=== PATIENT | female | born 1970 | race Caucasian/White ===

== ENCOUNTER 2018-11-23 17:51 | Inpatient (IN) ==
--- NOTE | 2018-11-23 19:39 | XRay Report ---
XR chest 1V portable CLINICAL HISTORY: 48 years-old Female presenting with weakness. TECHNIQUE: Portable upright AP view of the chest was obtained. COMPARISON: None. FINDINGS: Cardiomediastinal silhouette normal. No focal opacity. No large effusion or pneumothorax. Osseous str uctures normal. Upper abdomen normal. IMPRESSION: 1. No acute cardiopulmonary disease. Electronically signed by: Dliip Katz M.D. 11/23/2018 7:38 PM
[2018-11-23 19:55] LABS: Basophils # (auto) 0.02 K/uL (0-0.2); Basophils % (auto) 0.2 %; Eosinophils # (auto) 0.15 K/uL (0-0.5); Eosinophils % (auto) 1.2 %; Hematocrit (blood only) 37.3 % (37-47); Hemoglobin 13.4 g/dL (12.0-16.0); Immature Granulocytes # (auto) 0.06 K/uL (0.00-0.02); Immature Granulocytes % (auto) 0.5 %; Lymphocytes # (auto) 2.13 K/uL (1.2-3.4); Lymphocytes % (auto) 16.9 %; Mean Corpuscular Hemoglobin 32.6 pg (25-34); Mean Corpuscular Hgb Conc 35.9 g/dL (32-36); Mean Corpuscular Volume 90.8 fL (80-100); Mean Platelet Volume 9.5 fL (7.4-10.4); Monocytes # (auto) 0.75 K/uL (0.11-0.59); Neutrophils # (auto) 9.46 K/uL (1.4-6.5); Neutrophils % (auto) 75.2 %; Platelet Count 426 K/uL (130-400); RDW Standard Deviation 42.9 fL (36.4-46.3); Red Blood Count 4.11 M/uL (4.2-5.4); White Blood Count 12.57 K/uL (4.8-10.8)
[2018-11-23 20:38] LABS: Alanine Aminotransferase 101 U/L (12-78); Albumin Globulin Ratio 0.9 (0.9-2); Albumin Level 3.8 gm/dl (3.4-5.0); Alkaline Phosphatase 124 U/L (45-117); Aspartate Aminotransferase 163 U/L (15-37); BUN Creatinine Ratio 10.8 (10-20); Bilirubin,Total 0.4 mg/dl (0.2-1); Blood Urea Nitrogen 14 mg/dl (7-18); Calcium 9.8 mg/dl (8.5-10.1); Carbon Dioxide 27 mmol/L (21-32); Chloride 89 mmol/L (98-107); Creatine Kinase 8705 U/L (26-192); Creatinine Clr Calc Pharmacy 49.2 ml/min; Est GFR (African American) 58.9; Est GFR (Non-African American) 50.8; Glucose 354 mg/dl (70-99); Phosphorus 2.7 mg/dl (2.5-4.9); Potassium 3.9 mmol/L (3.5-5.1); Sodium 124 mmol/L (136-145); Total Protein 7.8 gm/dl (6.4-8.2); Troponin I < 0.015 ng/ml (0-0.045)
[2018-11-23] MEDS ORDERED: LACTATED RINGER'S 500 ML IV ONE (20:42)
[2018-11-23 20:45] LABS: Lyme Ab IgG w/WB Rflx Negative (Negative); Lyme Ab IgM w/WB Rflx Negative (Negative)
--- NOTE | 2018-11-23 21:10 | Emergency Department Note ---
Entered by Cece Cassidy acting as a scribe for History of Present Illness General Chief complaint: Pain (Generalized) Stated complaint: FULL BODY CRAMPS Source: patient History of Present Illness Provider complaint: Pain (Generalized) Onset (ago): week(s) 1 Location: upper extremity and lower extremity Pain Consistency: + constant Maximum Pain Intensity: 1 Quality: + aching Exacerbated By: + movement Associated symptoms: no cough, no fever/chills and no nausea/vomiting The patient is a 48 year old female who presents to the Emergency Room with complaints of constant aching generalized pain that began 1 week ago. The patient reports the pain is exacerbated by movement and has gotten gradually worse over the course of the past week. The patient states she is experiencing cramping, including bad charley horse cramps. The patient reports she is eating well and has no changes in her medication. The patient denies any fevers, coughs, or nausea. The patient mentioned she has had no changes in medication and only drinks occasionally. Home Medications Home Medications Medication Instructions Recorded Confirmed Type albuterol sulfate [Ventolin HFA] 2 puff INHALATION Q6H PRN 11/23/18 11/23/18 History insulin lispro [Humalog U-100 See Rx Instructions .ROUTE .COMPLEX 11/23/18 11/23/18 History Insulin] levothyroxine 112 mcg PO QAM 11/23/18 11/23/18 History lisinopril 5 mg PO QPM 11/23/18 11/23/18 History loratadine 10 mg PO QPM 11/23/18 11/23/18 History simvastatin 20 mg PO QPM 11/23/18 11/23/18 History Allergies Allergy/AdvReac Type Severity Reaction Status Date / Time No Known Allergies Allergy Verified 11/23/18 20:23 Past Med/Surg History Medical History Diabetes type I Hypertension Hyperthyroidism Family History Other No pertinent family history in first degree relatives Review of Systems See HPI for pertinent positives & negatives. and A total of 10 systems reviewed and were otherwise negative Physical Exam Vital Signs Vital Signs - 24 hr 11/23/18 18:00 11/23/18 19:18 11/23/18 19:22 Temperature 36.7 C Temperature Source Oral Sepsis Recent Fever Within 48 Hours No Sepsis New/Unexplained Change in Mental Status No Sepsis Action Taken by Nursing No Action Required Pulse Rate 90 88 90 Pulse Rate [Finger] Pulse Rate from SpO2 Sensor 88 90 Respiratory Rate 18 19 17 Blood Pressure 108/75 138/81 Blood Pressure [Right Arm] Blood Pressure Mean 86 100 Blood Pressure Mean [Right Arm] Pulse Oximetry 97 98 98 Oxygen Delivery Method Room Air Room Air Room Air 11/23/18 19:30 11/23/18 19:40 11/23/18 19:50 Temperature Temperature Source Sepsis Recent Fever Within 48 Hours Sepsis New/Unexplained Change in Mental Status Sepsis Action Taken by Nursing Pulse Rate 85 86 86 Pulse Rate [Finger] Pulse Rate from SpO2 Sensor 85 86 86 Respiratory Rate 14 15 16 Blood Pressure 116/83 Blood Pressure [Right Arm] Blood Pressure Mean 94 Blood Pressure Mean [Right Arm] Pulse Oximetry 94 96 95 Oxygen Delivery Method Room Air Room Air Room Air 11/23/18 20:00 11/23/18 20:10 11/23/18 20:20 Temperature Temperature Source Sepsis Recent Fever Within 48 Hours Sepsis New/Unexplained Change in Mental Status Sepsis Action Taken by Nursing Pulse Rate 83 88 84 Pulse Rate [Finger] Pulse Rate from SpO2 Sensor 83 Respiratory Rate 14 16 14 Blood Pressure 125/80 Blood Pressure [Right Arm] Blood Pressure Mean 95 Blood Pressure Mean [Right Arm] Pulse Oximetry 95 Oxygen Delivery Method Room Air Room Air Room Air 11/23/18 20:30 11/23/18 20:40 11/23/18 20:42 Temperature Temperature Source Sepsis Recent Fever Within 48 Hours Sepsis New/Unexplained Change in Mental Status Sepsis Action Taken by Nursing Pulse Rate 86 86 Pulse Rate [Finger] 85 Pulse Rate from SpO2 Sensor Respiratory Rate 10 L 15 15 Blood Pressure Blood Pressure [Right Arm] 110/73 Blood Pressure Mean Blood Pressure Mean [Right Arm] 85 Pulse Oximetry 96 Oxygen Delivery Method Room Air Room Air Room Air 11/23/18 20:43 11/23/18 20:50 11/23/18 21:00 Temperature Temperature Source Sepsis Recent Fever Within 48 Hours Sepsis New/Unexplained Change in Mental Status Sepsis Action Taken by Nursing Pulse Rate 86 83 84 Pulse Rate [Finger] Pulse Rate from SpO2 Sensor 86 83 85 Respiratory Rate 16 13 16 Blood Pressure 110/73 135/85 Blood Pressure [Right Arm] Blood Pressure Mean 85 101 Blood Pressure Mean [Right Arm] Pulse Oximetry 96 95 96 Oxygen Delivery Method Room Air Room Air Room Air 11/23/18 21:10 11/23/18 21:20 11/23/18 21:30 Temperature Temperature Source Sepsis Recent Fever Within 48 Hours Sepsis New/Unexplained Change in Mental Status Sepsis Action Taken by Nursing Pulse Rate 88 86 Pulse Rate [Finger] Pulse Rate from SpO2 Sensor 88 86 84 Respiratory Rate 20 Blood Pressure Blood Pressure [Right Arm] Blood Pressure Mean Blood Pressure Mean [Right Arm] Pulse Oximetry 98 99 95 Oxygen Delivery Method Room Air Room Air Room Air 11/23/18 21:31 11/23/18 21:36 11/23/18 21:40 Temperature Temperature Source Sepsis Recent Fever Within 48 Hours Sepsis New/Unexplained Change in Mental Status Sepsis Action Taken by Nursing Pulse Rate 82 Pulse Rate [Finger] 85 Pulse Rate from SpO2 Sensor 82 83 Respiratory Rate 20 13 Blood Pressure 139/81 Blood Pressure [Right Arm] 139/81 Blood Pressure Mean 100 Blood Pressure Mean [Right Arm] 100 Pulse Oximetry 96 99 97 Oxygen Delivery Method Room Air Room Air Room Air 11/23/18 21:50 11/23/18 22:00 11/23/18 22:10 Temperature Temperature Source Sepsis Recent Fever Within 48 Hours Sepsis New/Unexplained Change in Mental Status Sepsis Action Taken by Nursing Pulse Rate 86 82 86 Pulse Rate [Finger] Pulse Rate from SpO2 Sensor 86 82 85 Respiratory Rate 24 11 L 16 Blood Pressure 126/86 Blood Pressure [Right Arm] Blood Pressure Mean 99 Blood Pressure Mean [Right Arm] Pulse Oximetry 97 97 97 Oxygen Delivery Method Room Air Room Air Room Air 11/23/18 22:20 11/23/18 22:30 11/23/18 22:31 Temperature Temperature Source Sepsis Recent Fever Within 48 Hours Sepsis New/Unexplained Change in Mental Status Sepsis Action Taken by Nursing Pulse Rate 83 84 Pulse Rate [Finger] Pulse Rate from SpO2 Sensor 84 86 84 Respiratory Rate 17 Blood Pressure 122/88 Blood Pressure [Right Arm] Blood Pressure Mean 99 Blood Pressure Mean [Right Arm] Pulse Oximetry 96 95 95 Oxygen Delivery Method Room Air Room Air Room Air 11/23/18 22:40 Temperature Temperature Source Sepsis Recent Fever Within 48 Hours Sepsis New/Unexplained Change in Mental Status Sepsis Action Taken by Nursing Pulse Rate Pulse Rate [Finger] Pulse Rate from SpO2 Sensor 84 Respiratory Rate Blood Pressure Blood Pressure [Right Arm] Blood Pressure Mean Blood Pressure Mean [Right Arm] Pulse Oximetry 95 Oxygen Delivery Method Room Air GENERAL: Awake, alert, in no distress HENT: Normocephalic, atraumatic. EYES: Normal conjunctiva. Sclera non-icteric. NECK: Supple. No nuchal rigidity. RESPIRATORY: Clear to auscultation. No wheezes. Normal respiratory effort. CARDIAC: Normal rate. Normal rhythm. Extremities warm and well perfused. GI: Soft, non-distended. No tenderness to palpation. No rebound or guarding. No masses. RECTAL: Deferred. MUSCULOSKELETAL: Atraumatic. Chest examination reveals no tenderness. LOWER EXTREMITIES: Calves are equal size bilaterally and non-tender. No edema NEURO: Normal sensorium. No sensory or motor deficits noted. No facial droop. No slurred speech. SKIN: Warm and dry. No rash or jaundice noted. Course 1919: Past medical records reviewed. The patient was evaluated in room C01B. A complete history and physical exam was performed. 1944: I reevaluated and discussed the results with the patient. The patient is resting comfortably. 2107: I spoke with Dr. Acosta- [facility] about the patient's case and he will accept her for further evaluation. Administered Medications Discontinued Medications Lactated Ringer's (Lr) 500 mls @ 999 mls/hr IV .Q31M ONE Stop: 11/23/18 21:12 Last Infusion: 11/23/18 21:25 Dose: 0 mls/hr Documented by: [id number] Admin: 11/23/18 20:51 Dose: 999 mls/hr Documented by: [id number] Medical Decision Making Differential Diagnosis Differential Diagnosis includes but is not limited to dehydration, stroke, anemia, hypoglycemia, hyponatremia, hypernatremia, urinary tract infection, pneumonia, bronchitis, sepsis, gastroenteritis, additional abdominal pathology, metabolic abnormalities and infections. Medical Records Attestation: I reviewed the patient's medical records. Home Medications Current Medication List: was personally reviewed by me Laboratory Data Attestation: I reviewed the patient's lab results. Result diagrams: 11/23/18 19:15 11/23/18 19:15 Lab Results 11/23/18 11/23/18 11/23/18 Range/Units 19:15 19:15 19:15 WBC 12.57 H (4.8-10.8) K/uL RBC 4.11 L (4.2-5.4) M/uL Hgb 13.4 (12.0-16.0) g/dL Hct 37.3 (37-47) % MCV 90.8 (80-100) fL MCH 32.6 (25-34) pg MCHC 35.9 (32-36) g/dL RDW Std Deviation 42.9 (36.4-46.3) fL RDW Coeff of Dilshad 13.0 (11.5-14.5) % Plt Count 426 H (130-400) K/uL MPV 9.5 (7.4-10.4) fL Immature Gran % (Auto) 0.5 % Neut % (Auto) 75.2 % Lymph % (Auto) 16.9 % Stewart % (Auto) 6.0 % Eos % (Auto) 1.2 % Baso % (Auto) 0.2 % Immature Gran # (Auto) 0.06 H (0.00-0.02) K/uL Neut # (Auto) 9.46 H (1.4-6.5) K/uL Lymph # (Auto) 2.13 (1.2-3.4) K/uL Stewart # (Auto) 0.75 H (0.11-0.59) K/uL Eos # (Auto) 0.15 (0-0.5) K/uL Baso # (Auto) 0.02 (0-0.2) K/uL Sodium 124 L (136-145) mmol/L Potassium 3.9 (3.5-5.1) mmol/L Chloride 89 L (98-107) mmol/L Carbon Dioxide 27 (21-32) mmol/L Anion Gap 8.0 (3-11) BUN 14 (7-18) mg/dl Creatinine 1.25 H (0.6-1.2) mg/dl Est Cr Clr Drug Dosing 49.2 ml/min Est GFR ( Amer) 58.9 Est GFR (Non-Af Amer) 50.8 BUN/Creatinine Ratio 10.8 (10-20) Glucose 354 H* (70-99) mg/dl Osmolality (280-300) mOsm/kg Calcium 9.8 (8.5-10.1) mg/dl Phosphorus 2.7 (2.5-4.9) mg/dl Magnesium 2.0 (1.8-2.4) mg/dl Total Bilirubin 0.4 (0.2-1) mg/dl AST 163 H (15-37) U/L ALT 101 H (12-78) U/L Alkaline Phosphatase 124 H (45-117) U/L Total Creatine Kinase 8705 H (26-192) U/L Troponin I < 0.015 (0-0.045) ng/ml Total Protein 7.8 (6.4-8.2) gm/dl Albumin 3.8 (3.4-5.0) gm/dl Globulin 4.0 (2.5-4.0) gm/dl Albumin/Globulin Ratio 0.9 (0.9-2) TSH 106.000 H (0.300-4.500) uIu/ml Free T4 0.88 (0.8-1.6) ng/dl Free T3 (2.3-4.2) pg/ml Total T3 (0.60-1.81) ng/ml Lyme Disease IgG Ab Negative (Negative) Lyme Disease IgM Ab Negative (Negative) 11/23/18 11/23/18 Range/Units 22:40 22:40 WBC (4.8-10.8) K/uL RBC (4.2-5.4) M/uL Hgb (12.0-16.0) g/dL Hct (37-47) % MCV (80-100) fL MCH (25-34) pg MCHC (32-36) g/dL RDW Std Deviation (36.4-46.3) fL RDW Coeff of Dilshad (11.5-14.5) % Plt Count (130-400) K/uL MPV (7.4-10.4) fL Immature Gran % (Auto) % Neut % (Auto) % Lymph % (Auto) % Stewart % (Auto) % Eos % (Auto) % Baso % (Auto) % Immature Gran # (Auto) (0.00-0.02) K/uL Neut # (Auto) (1.4-6.5) K/uL Lymph # (Auto) (1.2-3.4) K/uL [place] # (Auto) (0.11-0.59) K/uL Eos # (Auto) (0-0.5) K/uL Baso # (Auto) (0-0.2) K/uL Sodium (136-145) mmol/L Potassium (3.5-5.1) mmol/L Chloride (98-107) mmol/L Carbon Dioxide (21-32) mmol/L Anion Gap (3-11) BUN (7-18) mg/dl Creatinine (0.6-1.2) mg/dl Est Cr Clr Drug Dosing ml/min Est GFR ( Amer) Est GFR (Non-Af Amer) BUN/Creatinine Ratio (10-20) Glucose (70-99) mg/dl Osmolality 278 L (280-300) mOsm/kg Calcium (8.5-10.1) mg/dl Phosphorus (2.5-4.9) mg/dl Magnesium (1.8-2.4) mg/dl Total Bilirubin (0.2-1) mg/dl AST (15-37) U/L ALT (12-78) U/L Alkaline Phosphatase (45-117) U/L Total Creatine Kinase (26-192) U/L Troponin I (0-0.045) ng/ml Total Protein (6.4-8.2) gm/dl Albumin (3.4-5.0) gm/dl Globulin (2.5-4.0) gm/dl Albumin/Globulin Ratio (0.9-2) TSH (0.300-4.500) uIu/ml Free T4 (0.8-1.6) ng/dl Free T3 1.48 L (2.3-4.2) pg/ml Total T3 0.52 L (0.60-1.81) ng/ml Lyme Disease IgG Ab (Negative) Lyme Disease IgM Ab (Negative) Imaging Data Radiologist's Impression: Radiology results as stated below per my review and the radiologist's interpretation: XR chest 1V portable CLINICAL HISTORY: 48 years-old Female presenting with weakness. TECHNIQUE: Portable upright AP view of the chest was obtained. COMPARISON: None. FINDINGS: Cardiomediastinal silhouette normal. No focal opacity. No large effusion or pneumothorax. Osseous structures normal. Upper abdomen normal. IMPRESSION: 1. No acute cardiopulmonary disease. Electronically signed by: Dilip Katz M.D. 11/23/2018 7:38 PM ECG Data Attestation: I personally reviewed and interpreted this ECG as follows: Indication: weakness Rate (beats per minute): 83 Rhythm: normal sinus Findings: no PVC, no ST depression and no ST elevation Blood Pressure Blood Pressure Findings: Normal blood pressure Blood Pressure Disposition: further management by hospitalist [id number] Narrative Patient is a 48-year-old female complete with diffuse body cramping. No fevers or trauma reported. History of type 1 diabetes, hypertension, hyperlipidemia. Is on multiple supplements including potassium and magnesium. 6 days of diffuse body cramping worse last several days. No fevers. Worse with movement. Not joint specific. No history. No rash. No significant tenderness. Pain is diffuse over extremities back chest at times. Does not seem cardiac in nature medically EKG troponin. Basic labs are complete including electrolytes and thyroid function given her medications. Exam is fairly unremarkable. Patient states compliance with her insulin pump for type 1 diabetes with her blood sugars she states have been somewhat high in the 2 and 300s. Patient's blood sugar is elevated 354 but there is no significant anion gap. Patient does significant we have a hyponatremia of 124, slight low transaminitis of unclear significance (possibly related to Rhabdo/CPK elevation) and a CK of 8700. Negative troponin EKG is unremarkable. Leukocytosis of unclear origin of 12.5 is noted. Patient did receive a small amount of lactated Ringer's here. Unsure of the exact etiology of the patient's elevated CPK if it is just related to her hyponatremia or not. Again not finding clear infectious symptom otology this time. Given these abnormalities patient does require admission for further work-up and evaluation. All some studies were pending as well as urine studies. Patient to be evaluated by the [facility] hospitalist. Patient's also has significant TSH elevation of 106. Not significantly bradycardic and I doubt this represents myxedema coma but although likely her elect light abnormalities are secondary to her hypothyroidism. Patient initially stated she was taking her medication later admitted she was not taking her Synthroid. Impression & Plan Weakness, Myxedema, Muscle cramping, Diabetes mellitus, Acute hyponatremia, Elevated CPK Discharge Plan Visit Data Chief Complaint: Pain (Generalized) Stated Complaint: FULL BODY CRAMPS ED Provider: Kong Varghese Discharge Problem: Weakness, Myxedema, Muscle cramping, Diabetes mellitus, Acute hyponatremia, Elevated CPK Forms Stand Alone Forms: My [facility] Prescriptions Prescriptions: No Action simvastatin 20 mg tablet 20 mg PO QPM RF: 0 lisinopril 5 mg tablet 5 mg PO QPM RF: 0 insulin lispro [Humalog U-100 Insulin] 100 unit/mL solution See Rx Instructions .ROUTE .COMPLEX RF: 0 albuterol sulfate [Ventolin HFA] 90 mcg/actuation HFA aerosol inhaler 2 puff inhalation Q6H PRN (Reason: Shortness Of Breath Or Wheezing) RF: 0 loratadine 10 mg tablet 10 mg PO QPM RF: 0 levothyroxine 112 mcg tablet 112 mcg PO QAM RF: 0 Discharge Problem: Diabetes mellitus Qualifiers: Diabetes mellitus type: type 1 The scribe's documentation has been prepared under my direction and personally reviewed by me in its entirety. I confirm that the note above accurately reflects all work, treatment, procedures, and medical decision making performed by me.
--- NOTE | 2018-11-23 23:00 | History & Physical Report ---
Date of Service November 23, 2018 Assessment & Plan (1) Muscle cramping: (2) Diabetes mellitus: (3) HLD (hyperlipidemia): (4) Hypothyroidism: (5) Myxedema: 48-year-old female with history of hypothyroidism, diabetes, CKD, HLD presents with severe body cramps x6 days. Has not taken thyroid medication x 1 week. Concern for thyroid myxedema. Thyroid myxedema in the setting of medication noncompliance: Presenting with hyponatremia, LFT abnormalities, elevated CK which are very characteristic of thyroid myxedema given elevated TSH. Presentation also likely complicated by hypovolemia. Unlikely to be SIADH per labs obtained Afebrile, vitals within normal limits, normotensive Mild WBC elevation, 12.5 likely hemoconcentrated as platelet count also elevated 426 TSH 106 Free T3 1.48 , total T3 0.52, free T4 0.88 Sodium 124 - Serum Osm 278, urine osm 193, urine sodium 35 LFT: AST 163, ALT 101, alk phos 124 Total CK 8705 Started on hydrocortisone 100 mg IV q. 8 x 2 days Given one-time dose of levothyroxine IV 200 mg Continue home levothyroxine 112 mcg every morning SHANNAN on CKD Creatinine 1.25 Baseline creatinine unknown On IV fluids NS at 100 cc/h and received 500 cc LR in the ED Hold home lisinopril Continue monitor BMP Hyperglycemia: History of diabetes Glucose 354 in the ED -likely noncompliant with insulin as well Hydroxybutyrate: Regular insulin 10 units x 1 Lantus 10 units every morning SSI Continue to monitor BSG Hyperlipidemia Hold home statin given LFT abnormalities FEN/GI: NS 100 cc/h, diabetic diet DVT prophylaxis: SCDs, encourage ambulation Code: Full Disposition: [facility] telemetry History of Present Illness Chief Complaint: Severe body cramps Primary Care Provider: Colin Arita 48-year-old female with history of hypothyroidism, diabetes, CKD, HLD presents with severe body cramps x6 days. Reports leg cramps when moves or stands. Denies any extraneous activity bedrest. Also developed a cold around the same time associated with some chest tightness, productive cough and congestion. Patient has chronic constipation. Denies any fever, chills, chest pain, shortness of breath, nausea, vomiting, abdominal pain, diarrhea, constipation, hematochezia, melena, hematuria, dysuria, increased urinary frequency. Reports not taking thyroid medication for about a week as her mother was in the hospital for open heart surgery and she was stressed with that and forgetting to take a.m. medications. Reports resuming thyroid medication 3 days ago. Reports drinking about 32 ounces of water per day but also drinks coffee and soda. Social history: Smokes 5 to 8 cigarettes/day, smoking since age 16, social alcohol use, denies occasional drug use Surgical history: Hysterectomy, cholecystectomy, left eyeball removed status post diabetic retinopathy and glaucoma Family history: Mother CAD Allergies Allergy/AdvReac Type Severity Reaction Status Date / Time No Known Allergies Allergy Verified 11/23/18 20:23 Home Medications Home Medications Medication Instructions Recorded Confirmed Type albuterol sulfate [Ventolin HFA] 2 puff INHALATION Q6H PRN 11/23/18 11/23/18 History insulin lispro [Humalog U-100 See Rx Instructions .ROUTE .COMPLEX 11/23/18 11/23/18 History Insulin] levothyroxine 112 mcg PO QAM 11/23/18 11/23/18 History lisinopril 5 mg PO QPM 11/23/18 11/23/18 History loratadine 10 mg PO QPM 11/23/18 11/23/18 History simvastatin 20 mg PO QPM 11/23/18 11/23/18 History Past Med/Surg History Medical History Diabetes type I Hypertension Hyperthyroidism Family History Other No pertinent family history in first degree relatives Social History Preferred Language: [place] Communication Ability: Effective Consulting Property Manager Required: No Beliefs That Will Affect Care: None Current Living Situation: Family Other Information That Helps Us Care for You: No Feels Safe at Home: Yes Safety Concerns: Feels Safe At This Time Smoking Status: Current every day smoker Tobacco Type: cigarettes ; Do You Dip or Chew Tobacco: No ; Tobacco Cessation Education Requested by Patient: No Hx Alcohol Use: Yes Alcohol type: wine Hx Substance Use: No Review of Systems Review of Systems: As per HPI Physical Exam Physical Exam: General: In NAD HEENT: dry oral mucosa Neck: no thyromegaly or LAD appreciated Neuro: A&O x 4 Pulm: CTAB coarse but equal breath sounds bilaterally CV: RRR, no m/r/g Abdomen:+BS, no TTP in all quadrants, non-distended LE: no LE edema, no calf TTP Results & Data Vital Signs (Past 12 Hours) Vital Signs Temp Pulse Pulse Resp BP BP Pulse Ox 11/23/18 22:40 95 11/23/18 22:31 84 122/88 95 11/23/18 22:30 95 11/23/18 22:20 83 17 96 11/23/18 22:10 86 16 97 11/23/18 22:00 82 11 L 126/86 97 11/23/18 21:50 86 24 97 11/23/18 21:40 82 13 97 11/23/18 21:36 85 20 139/81 99 11/23/18 21:31 139/81 96 11/23/18 21:30 95 11/23/18 21:20 86 20 99 11/23/18 21:10 88 98 11/23/18 21:00 84 16 135/85 96 11/23/18 20:50 83 13 95 11/23/18 20:43 86 16 110/73 96 11/23/18 20:42 85 15 110/73 96 11/23/18 20:40 86 15 11/23/18 20:30 86 10 L 11/23/18 20:20 84 14 11/23/18 20:10 88 16 11/23/18 20:00 83 14 125/80 95 11/23/18 19:50 86 16 95 11/23/18 19:40 86 15 96 11/23/18 19:30 85 14 116/83 94 11/23/18 19:22 90 17 98 11/23/18 19:18 88 19 138/81 98 11/23/18 18:00 36.7 C 90 18 108/75 97 Laboratory Results Abnormal lab results 11/23/18 11/23/18 Range/Units 19:15 19:15 WBC 12.57 H (4.8-10.8) K/uL RBC 4.11 L (4.2-5.4) M/uL Plt Count 426 H (130-400) K/uL Immature Gran # (Auto) 0.06 H (0.00-0.02) K/uL Neut # (Auto) 9.46 H (1.4-6.5) K/uL [place] # (Auto) 0.75 H (0.11-0.59) K/uL Sodium 124 L (136-145) mmol/L Chloride 89 L (98-107) mmol/L Creatinine 1.25 H (0.6-1.2) mg/dl Glucose 354 H* (70-99) mg/dl AST 163 H (15-37) U/L ALT 101 H (12-78) U/L Alkaline Phosphatase 124 H (45-117) U/L Total Creatine Kinase 8705 H (26-192) U/L TSH 106.000 H (0.300-4.500) uIu/ml Diagnostic Findings XR chest 1V portable CLINICAL HISTORY: 48 years-old Female presenting with weakness. TECHNIQUE: Portable upright AP view of the chest was obtained. COMPARISON: None. FINDINGS: Cardiomediastinal silhouette normal. No focal opacity. No large effusion or pneumothorax. Osseous structures normal. Upper abdomen normal. IMPRESSION: 1. No acute cardiopulmonary disease. Code Status & VTE Plan Code Status Full VTE Prophylaxis Plan VTE Prophylaxis will be ordered: Yes Supervising Physician Co-Signing Physician Notes Attending addendum: I have physically seen this patient, have supervised the medical residents activities, and agree with the H&P unless as otherwise noted. Assessment and Plan: Thyroid myxedema- Patient admits to not taking her thyroid medication for at least 2 to 3 weeks. Placed on hydrocortisone 100 mg IV every 8 hours until clear there is no associated adrenal insufficiency. Give single dose of IV levothyroxine 200 mcg now, and then continue with daily dose 112 mcg. Hyperglycemia associate with diabetes mellitus- Likely medically noncompliant again Orders as written. Discussed with patient importance of medical compliance with all her physicians orders when she gets discharged from the hospital. Remainder of orders and notations as noted. PG Care Time/CCT Total # of Minutes Spent Total Time Spent with Patient: Total time spent is greater than 50% in coordination of care (as documented) at patient's floor/unit and/or counseling patient: Resident Activity Tracking Resident Involvement: Resident Care Provided Care Provided: Adult Hospital Medicine
[2018-11-23 23:21] LABS: T3 Total 0.52 ng/ml (0.60-1.81)
[2018-11-23 23:22] LABS: T3 Free 1.48 pg/ml (2.3-4.2)
[2018-11-23 23:32] LABS: T4 Free Thyroxine 0.88 ng/dl (0.8-1.6)
[2018-11-23 23:52] LABS: Beta-Hydroxybutyrate 1.16 mg/dl (0.2-2.81)
[2018-11-24] MEDS ORDERED: NovoLIN-R INSULIN PER UNIT CHARGE SC STA ×2 (00:08→00:24)
[2018-11-24] MEDS ORDERED: LEVOTHYROXINE SODIUM 200 MCG in SYRINGE 0 ML IV STA (00:08)
[2018-11-24] MEDS ORDERED: ALBUTEROL HFA 8 GM INHALER INH PRN (00:08)
[2018-11-24] MEDS ORDERED: POLYETHYLENE (MIRALAX) 17 GM PACK PO PRN (00:08)
[2018-11-24] MEDS ORDERED: ACETAMINOPHEN 325 MG TAB PO PRN (00:08)
[2018-11-24 00:19] LABS: Appearance Urine Clear (Clear); Bilirubin Urine Negative (Negative); Blood Urine Negative (Negative); Color Urine Yellow; Glucose Urine UA 2+ (Negative); Ketones Urine Negative (Negative); Leukocyte Esterase Urine Negative (Negative); Nitrite Urine Negative (Negative); Protein Urine Negative (Negative); Specific Gravity Urine 1.013 (1.000-1.030); Urobilinogen Urine Negative (Negative); pH Urine 6.5 (4.5-7.5)
[2018-11-24] MEDS ORDERED: GLUCOSE 40% GEL 15 GM TUBE PO PRN (00:30)
[2018-11-24] MEDS ORDERED: GLUCOSE 10 TABS/TUBE PO PRN (00:30)
[2018-11-24] MEDS ORDERED: DEXTROSE 50% 50 ML SYRINGE IV PRN (00:30)
[2018-11-24] MEDS ORDERED: GLUCAGON FOR INJ 1 MG VIAL SQ PRN (00:30)
[2018-11-24] MEDS ORDERED: CARBOHYDRATES FOR HYPOGLYCEMIA PO PRN (00:30)
[2018-11-24] MEDS: HYDROCORTISONE SOD 100 MG in SYRINGE 0 ML IV SCH ×3 (00:40→15:58)
[2018-11-24] MEDS: SODIUM CHLORIDE 0.9% 1000ML 1,000 ML IV SCH ×3 (00:43→21:36)
[2018-11-24] MEDS ORDERED: PHARMACY GLYCEMIC MGMT CONSULT PRN (02:01)
[2018-11-24] MEDS ORDERED: INSULIN HUMAN REGULAR PER UNIT 4 UNITS in SYRINGE 3.96 ML IV ONE (02:15)
[2018-11-24] MEDS ORDERED: LANTUS PER UNIT CHARGE SQ ONE (02:15)
[2018-11-24] MEDS ORDERED: INSULIN ASPART 100 UNITS/ML 3 ML PEN SC SCH (04:00)
[2018-11-24] MEDS ORDERED: INSULIN ASPART 100 UNITS/ML 3 ML PEN SC ONE (04:15)
[2018-11-24] MEDS: LEVOTHYROXINE SODIUM 112 MCG TABLET PO SCH (05:55)
[2018-11-24 07:38] LABS: Basophils # (auto) 0.01 K/uL (0-0.2); Basophils % (auto) 0.1 %; Eosinophils # (auto) 0.01 K/uL (0-0.5); Eosinophils % (auto) 0.1 %; Hemoglobin 12.2 g/dL (12.0-16.0); Immature Granulocytes # (auto) 0.04 K/uL (0.00-0.02); Immature Granulocytes % (auto) 0.4 %; Lymphocytes # (auto) 1.14 K/uL (1.2-3.4); Lymphocytes % (auto) 10.6 %; Mean Corpuscular Hemoglobin 32.5 pg (25-34); Mean Corpuscular Hgb Conc 35.9 g/dL (32-36); Mean Corpuscular Volume 90.7 fL (80-100); Monocytes # (auto) 0.12 K/uL (0.11-0.59); Monocytes % (auto) 1.1 %; Neutrophils # (auto) 9.46 K/uL (1.4-6.5); Neutrophils % (auto) 87.7 %; Platelet Count 354 K/uL (130-400); RDW Coefficient of Variation 13.1 % (11.5-14.5); RDW Standard Deviation 43.3 fL (36.4-46.3); Red Blood Count 3.75 M/uL (4.2-5.4); White Blood Count 10.78 K/uL (4.8-10.8)
[2018-11-24 08:10] LABS: Albumin Level 3.2 gm/dl (3.4-5.0); Calcium 9.3 mg/dl (8.5-10.1); Creatinine Clr Calc Pharmacy 68.5 ml/min; Est GFR (African American) 82.1; Est GFR (Non-African American) 70.8; Potassium 4.4 mmol/L (3.5-5.1)
[2018-11-24 08:25] LABS: Bilirubin,Total 0.5 mg/dl (0.2-1); Globulin 3.3 gm/dl (2.5-4.0); Total Protein 6.5 gm/dl (6.4-8.2)
[2018-11-24] MEDS: INSULIN ASPART 100 UNITS/ML 3 ML PEN SC SCH ×4 (08:35→21:00)
--- NOTE | 2018-11-24 08:42 | Medical Student Progress Note ---
Date of Service November 24, 2018 Assessment & Plan (1) Myxedema: Patient is a 48 yo female with a history of hypothyroidism, poorly controlled DM type I, HTN, and 6 days of muscle cramping. She has had a cold for 1-2 weeks. She has not taken her levothyroxine in 1-2 months and cannot remember her last dose prior to 3 days ago. Probable etiology: 1-2 months of medication nonadherence per patient. - Vitals continue to be stable - Recommend continued supportive therapies as necessary - Discontinue stress dose steroids as the patient's history indicates high likelihood that underlying etiology is medication noncompliance and not adrenal insufficiency - Continue home Levothyroxine 112mcg daily - Repeat free T4 with 9/6 AM labs Present on Admission?: Yes (2) HLD (hyperlipidemia): - Continue to hold home statin in the face of elevated CK (3) Diabetes mellitus: - Elevated glucose (300+) readings throughout admission - Pharmacy glycemic consult and they are managing this - Evaluate A1C to assess glycemic control - Starting insulin drip to measure her true insulin requirements due to fluctuating scaling throughout the day today. - Began diabetes education for patient who has poorly controlled DM I. Will continue to educate the patient about her diabetes and sugar control. - Will require close follow up with endocrinology. 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 Hyponatremia has improved markedly with rehydration - Sodium improving, but quickly - Replete sodium with continued rehydration - lower NS rate to 60mL/hour - Continue thyroid hormone replacement - Monitor with repeat BMP at 8PM Present on Admission?: Yes (5) Elevated CPK: - Trending down on 9/5 labs - Continue Levothyroxine and rehydration - Continue to trend CK with 9/6 AM labs (6) LFTs abnormal: - AST/ALT trending down on 9/5 AM labs - Holding home statin - Repeat LFT's with 9/6 AM labs Supervising Attestation I personally examined the patient and verified all oconnor points of history and exam, discussed case, and agree with decision making with Jeaneth FINK. Feeling better. Less cramping. Less weakness. When I asked her questions in regards to diabetes management, she did very little insight into the reason why to care about sugar control. Vitals noted, in general she is awake and alert pleasant no distress. HEENT normocephalic atraumatic mucous members moist. Breathing unlabored no accessory muscle use good effort. Skin shows no rashes no pallor or icterus. Neuro shows cranial nerves II through XII be grossly intact except for her left eye which appears fairly poorly functional. Profound hypothyroidism/myxedemaimproving. Continue Synthroid replacement. Agree with ceasing IV steroids. Educated on the importance of continuing to take her Synthroid. Uncontrolled type 1 diabetesshe seems to have very little fundamental knowledge of why diabetes control is important. Further she seems to not have much meaningful knowledge on insulin management or carb relationship to insulin. Today we started with the basic fundamentals ("high sugars clog arteries") and reiterated the importance of this several times, drawing a direct conclusion to explain to her that is almost certainly how she lost vision in her left eye, but also that the main high sugars clog arteries type complications we are worried about would be heart attacks and strokes. Tomorrow we will educate further on insulin management. Agree insulin drip for tonight. Continue to follow closely. DVT proph - SCDs Otherwise as above. 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 The patient has a longstanding history of hypothyroidism and states that in the last month or two she has not taken her levothyroxine due to life stress and forgetting. she does not know the last time that she took her thyroid medication. She states that she resumed it 2-3 days before coming to the ED. The patient lives with her daughter and and believes that her will play a crucial role in holding her accountable and ensuring that she takes this medication. She explained that she did not understand the importance of this medication. She also states that her type I diabetes has been poorly controlled recently which she attributes to life stress. Her mother, sister, and maternal grandmother had diabetes. Father of NM. Mother recently had double bypass surgery. Maternal grandfather had a possible history of NM. Today she feels well and denies confusion, vision changes, hearing changes, weakness, cramping, fever, chills, chest pain, nausea, vomiting, abdominal pain, diarrhea, constipation, hematochezia, melena, hematuria, dysuria, increased urinary frequency. Endorses shortness of breath with mild productive cough. 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 ENMT: external ear and nose normal, oropharynx normal Mouth: + dentures Throat: uvula midline Neck: trachea midline, no thyromegaly normal visual inspection Respiratory: normal respiratory effort, lungs clear to auscultation Auscultation: lungs clear to auscultation bilaterally; no crackles, no rales, no rhonchi, no wheezes and no egophony Cardiovascular: RRR, no murmur, no edema Heart Sounds: normal S1 and normal S2; no click, no gallop, no murmur and no cardiac rub Vessels: no JVD, no carotid bruit and no renal bruit Extremities: normal capillary refill; no calf tenderness, no pedal edema and no edema Gastrointestinal (Abdomen): normal bowel sounds, soft, nontender, no hepatosplenomegaly Inspection/Auscultation: abdomen normal to inspection; abdomen not distended Musculoskeletal: no cyanosis or clubbing, extremities motor strength 5/5 Extremities: no muscle atrophy Skin: no rashes, warm and dry Neurologic: patellar DTR's 2+ bilat, sensation intact Motor/Sensory: no tremor, no fasciculations, no pronator drift and no asterixis Psychiatric: A+Ox3, euthymic affect Lymphatic: no cervical or axillary lymphadenopathy Results & Data Vital Signs (Past 12 Hours) Vital Signs Temp Pulse Pulse Resp BP BP BP 11/24/18 07:48 36.8 C 83 16 119/78 11/24/18 03:37 37.1 C 80 18 99/60 L 11/24/18 00:16 37.2 C 87 20 135/80 11/23/18 23:30 82 9 L 116/73 11/23/18 23:20 82 21 11/23/18 23:00 124/73 11/23/18 22:40 11/23/18 22:31 84 122/88 11/23/18 22:30 11/23/18 22:20 83 17 11/23/18 22:10 86 16 11/23/18 22:00 82 11 L 126/86 11/23/18 21:50 86 24 11/23/18 21:40 82 13 11/23/18 21:36 85 20 139/81 11/23/18 21:31 139/81 11/23/18 21:30 11/23/18 21:20 86 20 11/23/18 21:10 88 11/23/18 21:00 84 16 135/85 11/23/18 20:50 83 13 11/23/18 20:43 86 16 110/73 11/23/18 20:42 85 15 110/73 11/23/18 20:40 86 15 Pulse Ox 11/24/18 07:48 94 11/24/18 03:37 96 11/24/18 00:16 94 11/23/18 23:30 11/23/18 23:20 11/23/18 23:00 11/23/18 22:40 95 11/23/18 22:31 95 11/23/18 22:30 95 11/23/18 22:20 96 11/23/18 22:10 97 11/23/18 22:00 97 11/23/18 21:50 97 11/23/18 21:40 97 11/23/18 21:36 99 11/23/18 21:31 96 11/23/18 21:30 95 11/23/18 21:20 99 11/23/18 21:10 98 11/23/18 21:00 96 11/23/18 20:50 95 11/23/18 20:43 96 11/23/18 20:42 96 11/23/18 20:40
--- NOTE | 2018-11-24 08:52 | Pharmacy Report ---
Pharmacy Glycemic Short Note 2 - Date of Service November 24, 2018 - Glycemic Short BSG Results (Last 24 hours): 11/23/18 11/24/18 11/24/18 19:15 00:08 00:08 Glucose 354 H* POC Glucose 301 H* 318 H* 11/24/18 11/24/18 11/24/18 01:57 01:58 04:07 Glucose POC Glucose 301 H* 306 H* 187 H 11/24/18 11/24/18 07:20 07:31 Glucose 154 H POC Glucose 169 H OUTPATIENT ANTIDIABETIC REGIMEN: * Humalog pump: * basal rates: * 2763-2484 0.15units * 8951-3883 0.55units * 2553-6574 0.675units * 3927-7864 0.5units * 8475-0047 0.6units * 2020-1350 0.125units * total daily basal: 11.225units * CF 90mg/dL * Carb ratios: * 0736-7588 1:40 * 6373-9657 1:30 * 9396-1562 1:25 * 0041-3543 1:30 * * goal range: 80-110mg/dL * A1c = ? ASSESSMENT: * Type 1 diabetic admitted for thyroid myxedema possibly from medication noncompliance * Pt self-manages with Humalog insulin pump which has been disconnected * She is highly insulin sensitive based upon reported insulin doses. * Patient states the above insulin doses have been in use for months. * Will check A1c to determine level of glycemic control with current self- management. Her insulin log book was reviewed. Her BSGs have ranged upper 100s thru 300s most days this month. * Will base initial basal/bolus SQ regimen upon moderate stress level and an estimated outpt daily insulin requirement of ~24 units/day. * She is receiving IV hydrocortisone which may lead to increased insulin needs vs outpt regimen, plus it is unclear how well her current pump settings control her. * Of note, she will be having a family member bring her insulin pump supplies to the hospital. This will be required for transition back to her pump on day of discharge. PLAN FOR INPATIENT GLYCEMIC CONTROL: * Hold insulin pump * Basal insulin * Lantus 15 units SQ x 1 already given this AM. * Will continue Lantus per scale this evenin units if BSG less than 120, 15 units if 120-200, 17 units if greater than 200 * Bolus insulin * NovoLog per scale ACHS and 0000 + 0400 * Goal Range: Low 110 mg/dL - High 140 mg/dL * Correction Factor: 60 mg/dL/unit * Nutritional / Prandial insulin per carb ratio of 1 unit per 20 grams CHO consumed PLAN FOR DISCHARGE: * Will need to resume insulin pump on discharge - will need to determine level of glycemic control w/ A1c to determine if she should f/u with endocrine or PCP for pump adjustments.
[2018-11-24] MEDS ORDERED: INSULIN GLARGINE SOLOSTAR 100 UNITS/ML 3 ML PEN SC SCH ×2 (09:00→21:00)
[2018-11-24] MEDS ORDERED: INSULIN GLARGINE SOLOSTAR 100 UNITS/ML 3 ML PEN SC ONE (12:00)
[2018-11-24] MEDS ORDERED: INSULIN PROTOCOL GOAL RANGE ONE (15:01)
[2018-11-24] MEDS ORDERED: MODERATE STRESS LEVEL ONE (15:01)
[2018-11-24] MEDS ORDERED: INSULIN HUMAN REGULAR IV BOLUS 2 UNITS in SYRINGE 0 ML IV ONE (15:15)
[2018-11-24] MEDS ORDERED: INSULIN REGULAR 250 UNITS in SODIUM CHLORIDE 0.9% 247.5 ML IV SCH (15:15)
--- NOTE | 2018-11-24 18:59 | Hospitalist Progress Note ---
Date of Service November 24, 2018 Subjective This progress note was opened and completed simply for bureaucratic (coding) purposes. Please refer to the other progress note same day completed by myself in conjunction with Jeaneth FINK for the actual clinical details of the day. Results & Data Vital Signs (Past 12 Hours) Vital Signs Temp Pulse Resp BP BP Pulse Ox 11/24/18 16:22 97.9 F 89 17 115/76 98 11/24/18 11:02 98.4 F 93 H 16 110/72 95 11/24/18 10:28 98.4 F 92 H 16 103/66 95 11/24/18 07:48 98.2 F 83 16 119/78 94 PG Care Time/CCT Total # of Minutes Spent Total Time Spent with Patient: Total time spent is greater than 50% in coordination of care (as documented) at patient's floor/unit and/or counseling patient:
[2018-11-24] MEDS: LORATADINE 10 MG TAB PO SCH (21:36)
[2018-11-24 21:56] LABS: BUN Creatinine Ratio 13.4 (10-20); Calcium 9.1 mg/dl (8.5-10.1); Creatinine Clr Calc Pharmacy 51.7 ml/min; Est GFR (African American) 58.3; Est GFR (Non-African American) 50.3; Potassium 4.2 mmol/L (3.5-5.1)
[2018-11-25] MEDS ORDERED: SODIUM CHLORIDE 0.65% NA SOLN 45 ML (OCEAN) ONE (01:28)
[2018-11-25] MEDS: LEVOTHYROXINE SODIUM 112 MCG TABLET PO SCH (06:07)
--- NOTE | 2018-11-25 07:22 | Medical Student Progress Note ---
Date of Service November 25, 2018 Assessment & Plan (1) Myxedema: Patient is a 48 yo female with a history of hypothyroidism, poorly controlled DM type I, HTN, and 6 days of muscle cramping. She has had a cold for 1-2 weeks. She had not taken her levothyroxine in 1-2 months. Probable etiology: 1-2 months of medication nonadherence per patient. - Vitals continue to be stable - Recommend continued supportive therapies as necessary - Discontinue stress dose steroids as the patient's history indicates high likelihood that underlying etiology is medication noncompliance and not adrenal insufficiency - Continue home Levothyroxine 112mcg daily - T4 level has normalized on AM labs. Continue with home Synthroid regimen. - Will manage clinically and continue to evaluate daily as we are unsure of medication compliance as an outpatient (2) HLD (hyperlipidemia): - Continue to hold home statin in the face of elevated CK - CK trending down as of 11/24 - Stop trending (3) Diabetes mellitus: Poorly controlled type I diabetes. - A1C 9.1% - Pharmacy glycemic consult and they are managing this - Changing to basal bolus using pump controlled by patient but in conjunction with pharmacy - Will continue to educate the patient about her diabetes and sugar control. Specifically, working to educate about the interface of diet and insulin requirements. Yesterday we spoke at length about elevated blood sugar clogging arteries and capillaries, specifically with reference to the diabetic retinopathy that caused her to lose the left eye. - Will require close follow up with endocrinology and PCP as this poor control in type I diabetes and patient's family history place her at very high risk of CVA, MT, and other complications of diabetes Diabetes mellitus type: type 1 (4) Acute hyponatremia: On presentation she was hyponatremic, but laboratories indicated this was likely be a consequence of thyroid myxedema and not SiADH or other etiologies. Hyponatremia has improved markedly with rehydration - Sodium improving, but quickly - Continue thyroid hormone replacement - Sodium has normalized on AM labs - discontinue NS infusion and continue with normal diet. (5) Elevated CPK: Related to hypothyroidism and thyroid myxedema. Will resolve with cont inued Synthroid replenishment. - Continue Levothyroxine and rehydration - Continues to trend down. Stop trending. (6) LFTs abnormal: - AST/ALT trending down on 11/24 AM labs - Holding home statin - LFT's continue to trend down. Stop trending. FEN/GI: diet as tolerated DVT Prophylaxis: SCD's Code: Full Code DISPO: Med/Surg Tele Supervising Attestation I personally examined the patient and verified all o[place] points of history and exam, discussed case, and agree with decision making with Jeaneth FINK. Feeling better overall. Able to reiterate to me discussions from yesterday on why to care about diabetes (specifically she was able to express that hyperglycemia leads to vascular damage). Today we discussed more the overall philosophy of matching carbohydrate intake with insulin bolus dosing. Otherwise she still has a cough, but no other new complaints. Vitals noted, in general she is awake and alert pleasant no distress. HEENT normocephalic atraumatic mucous members moist. Breathing unlabored no accessory muscle use good effort. Skin shows no rashes no pallor or icterus. Neuro shows cranial nerves II through XII be grossly intact except for her left eye which appears fairly poorly functional. Profound hypothyroidism/myxedemaimproving. Continue Synthroid replacement. Continue to follow, hopefully home in the next 1 to 2 days. Close follow-up as an outpatient, especially given that her home dosing of 112 might end up being too high depending on her compliance even when that "regular" dose Uncontrolled type 1 diabeteson admission she seemed to have very little fundamental knowledge of why diabetes control is important. Continuing to titrate insulins for good control, asked pharmacy to do this via her pump while showing her what the dosing is and why, so that she can get better learning with the actual tool that she will use when she goes home. Yesterday we educated on the basics of why to care ("high sugar clogs arteries"), today we discussed more in the big picture about how matching a bolus with carb intake is critically important to maintaining euglycemia. Discussed examples of high medium and low- carb foods, and how they would require different dosing of insulin, and that checking his sugar 2 hours later with a goal of 100-150 would be a reasonable way to "grade her work" DVT proph - SCDs Otherwise as above. 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 The patient has a longstanding history of hypothyroidism and states that in the last month or two she has not taken her levothyroxine due to life stress and forgetting. She does not know the last time that she took her thyroid medication. She states that she resumed it 2-3 days before coming to the ED. The patient lives with her daughter and and believes that her will play a crucial role in holding her accountable and ensuring that she takes this medication. She explained that she did not understand the importance of this medication. She also states that her type I diabetes has been poorly controlled recently which she attributes to life stress. Her mother, sister, and maternal grandmother had diabetes. Father of MT. Mother recently had double bypass surgery. Maternal grandfather had a possible history of MT. Today she feels much improved since admission with no cramping, arthralgias, or pain. Has not had any acute events overnight. She denies confusion, vision changes, hearing changes, weakness, cramping, fever, chills, chest pain, shortness of breath, dyspnea on exertion, nausea, vomiting, abdominal pain, diarrhea, constipation, hematochezia, melena, hematuria, dysuria, increased urinary frequency. Endorses mild productive cough with some airway tightness. Review of Systems Review of Systems: All systems reviewed & are unremarkable except as noted in HPI & below Physical Exam Constitutional: well developed, well nourished and comfortable Eyes: PERRL, conjunctivae normal, anicteric sclerae PERRL ENMT: external ear and nose normal, oropharynx normal Mouth: + dentures Throat: uvula midline Neck: trachea midline, no thyromegaly normal visual inspection Respiratory: normal respiratory effort, lungs clear to auscultation no labored breathing, does not use accessory muscles and no grunting Auscultation: lungs clear to auscultation bilaterally; no crackles, no rales, no rhonchi, no wheezes and no egophony Cardiovascular: RRR, no murmur, no edema Heart Sounds: normal S1 and normal S2; no click, no gallop, no murmur and no cardiac rub Vessels: no JVD, no carotid bruit and no renal bruit Extremities: normal capillary refill; no calf tenderness, no pedal edema and no edema Gastrointestinal (Abdomen): normal bowel sounds, soft, nontender, no hepatosplenomegaly Inspection/Auscultation: abdomen normal to inspection; abdomen not distended Musculoskeletal: no cyanosis or clubbing, extremities motor strength 5/5 Extremities: no muscle atrophy Skin: no rashes, warm and dry normal turgor; no jaundice, no purpura, no pallor and no nail abnormality Trauma: no evidence of skin trauma, no abrasion, no contusion and no hematoma Neurologic: patellar DTR's 2+ bilat, sensation intact CN's II-XI intact bilaterally Motor/Sensory: no tremor, no fasciculations, no pronator drift and no asterixis Patient has poor function of her left eye which is a prosthetic secondary to diabetic retinopathy. Psychiatric: A+Ox3, euthymic affect Lymphatic: no cervical or axillary lymphadenopathy Results & Data Vital Signs (Past 12 Hours) Vital Signs Temp Pulse Resp BP Pulse Ox 11/25/18 03:00 36.9 C 76 18 109/76 95 11/24/18 23:13 37.1 C 85 18 116/70 97 11/24/18 19:33 36.8 C 89 19 119/77 95
[2018-11-25 07:50] LABS: Albumin Level 2.8 gm/dl (3.4-5.0); BUN Creatinine Ratio 16.6 (10-20); Calcium 7.4 mg/dl (8.5-10.1); Creatinine Clr Calc Pharmacy 62.3 ml/min; Est GFR (African American) 75.3; Potassium 3.9 mmol/L (3.5-5.1)
[2018-11-25 08:03] LABS: Bilirubin,Total 0.2 mg/dl (0.2-1); Globulin 2.8 gm/dl (2.5-4.0); T4 Free Thyroxine 1.05 ng/dl (0.8-1.6); Total Protein 5.6 gm/dl (6.4-8.2)
[2018-11-25 08:04] LABS: Estimated Average Glucose 214 mg/dl; Hemoglobin A1C 9.1 % (4.5-5.6)
[2018-11-25] MEDS ORDERED: INSULIN ASPART 100 UNITS/ML 3 ML PEN SC SCH ×2 (09:00)
[2018-11-25] MEDS ORDERED: INSULIN GLARGINE SOLOSTAR 100 UNITS/ML 3 ML PEN SC SCH (09:00)
[2018-11-25] MEDS ORDERED: INSULIN HUMAN LISPRO (humaLOG) 100 UNITS/ML VIAL SC PRN (11:15)
--- NOTE | 2018-11-25 11:45 | Pharmacy Report ---
Glycemic Control Progress Note - Date of Service November 25, 2018 - Scope Glycemic Pharmacist consulted for glycemic control to write orders per [facility] inpatient glycemic control protocol. - Objective Accuchecks BSG(last 24 hours):: 11/24/18 11/24/18 11/24/18 14:38 14:40 16:44 Glucose POC Glucose 463 H* 449 H* 337 H* 11/24/18 11/24/18 11/24/18 17:43 18:36 19:34 Glucose POC Glucose 317 H* 294 H 248 H 11/24/18 11/24/18 11/24/18 20:35 21:18 21:28 Glucose 151 H POC Glucose 198 H 178 H 11/24/18 11/25/18 11/25/18 22:43 00:34 01:27 Glucose POC Glucose 115 H 126 H 127 H 11/25/18 11/25/18 11/25/18 02:29 03:35 04:34 Glucose POC Glucose 112 H 95 87 11/25/18 11/25/18 11/25/18 06:05 06:55 07:12 Glucose 161 H POC Glucose 154 H 172 H HbA1c:: Hemoglobin A1c 9.1 % (4.5-5.6) H 11/25/18 06:55 - Recent Pertinent Medications The patient is currently receiving: * Basal insulin: Insulin gtt * Correctional Insulin: Novolog Correction per scale ACHS Goal Range: Low 120 mg/dL - High 180 mg/dL Correction Factor: -- mg/dL/unit * Prandial insulin: Per carb ratio of 1 unit per (per insulin infusion) grams CHO consumed - Outpatient Anti-Diabetic Meds insulin pump - settings found in diabetes note - Assessment & Plan ASSESSMENT: * See progress note from 11/24/18 for more background info, in short: * Pt receiving SQ basal bolus insulin regimen for hyperglycemia secondary to baseline DM (outpatient regimen on hold). * Patient is currently receiving an average of 34 units of insulin per day + insulin infusion * 17 units of basal insulin * 17 units of prandial/correctional insulin * BSGs ranging 169 - 449 mg/dl over the past 24hrs * Changes needed to insulin regimen: * AM Fasting BSG = 154 mg/dl. This is in goal range for patient based on inpatient targets and co-morbidities. This morning, patient was running insulin infusion at 1.1 units/hr. Per conversation with provider, will resume insulin pump. Watched patient place insulin pump. Will overlap with insulin infusion as per report patient's home blood sugars have been 250- 350 mg/dL. * Post-prandial BSGs were elevated yesterday - now on insulin pump + drip. PLAN FOR INPATIENT GLYCEMIC CONTROL: * Continuing insulin infusion - stop if order is had to hold insulin infusion * Restart home insulin pump and monitor per forms RECOMMENDATIONS FOR DISCHARGE: * HbA1C is elevated. Patient resumed home insulin pump. Monitor for understanding of pump and when to bolus. * Patient to follow-up with Heather Rea in [place] for insulin pump adjustments. * Please note that the plan above was derived based on current level of insulin resistance and hospital stress. These recommendations are appropriate for inpatient admission only. Plan of care upon discharge will need to be reassessed to avoid potential outpatient hypo/hyperglycemia. Thank you.
[2018-11-25] MEDS: SODIUM CHLORIDE 0.9% 1000ML 1,000 ML IV SCH (15:13)
--- NOTE | 2018-11-25 18:31 | Hospitalist Progress Note ---
Date of Service November 25, 2018 Subjective This progress note was opened and completed simply for bureaucratic (coding) purposes. Please refer to the other progress note same day completed by myself in conjunction with Jeaneth FINK for the actual clinical details of the day. Results & Data Vital Signs (Past 12 Hours) Vital Signs Temp Pulse Resp BP Pulse Ox 11/25/18 15:44 98.2 F 73 19 114/74 99 11/25/18 11:47 98.8 F 80 19 109/70 96 11/25/18 07:47 98.1 F 80 19 111/71 97 PG Care Time/CCT Total # of Minutes Spent Total Time Spent with Patient: Total time spent is greater than 50% in coordination of care (as documented) at patient's floor/unit and/or counseling patient:
[2018-11-25] MEDS: LORATADINE 10 MG TAB PO SCH (21:01)
[2018-11-26] MEDS: LEVOTHYROXINE SODIUM 112 MCG TABLET PO SCH (06:44)
[2018-11-26 08:05] LABS: Calcium 9.1 mg/dl (8.5-10.1); Creatinine Clr Calc Pharmacy 65.3 ml/min; Est GFR (African American) 79.1; Est GFR (Non-African American) 68.2; Potassium 4.1 mmol/L (3.5-5.1)
[2018-11-26 08:15] LABS: Thyroid Stimulating Hormone 73.9 uIu/ml (0.300-4.500)
--- NOTE | 2018-11-26 14:26 | Discharge Summary ---
Date of Service November 26, 2018 Admission HPI Per Admitting Provider 48-year-old female with history of hypothyroidism, diabetes, CKD, HLD presents with severe body cramps x6 days. Reports leg cramps when moves or stands. Denies any extraneous activity bedrest. Also developed a cold around the same time associated with some chest tightness, productive cough and congestion. Patient has chronic constipation. Denies any fever, chills, chest pain, shortness of breath, nausea, vomiting, abdominal pain, diarrhea, constipation, hematochezia, melena, hematuria, dysuria, increased urinary frequency. Reports not taking thyroid medication for about a week as her mother was in the hospital for open heart surgery and she was stressed with that and forgetting to take a.m. medications. Reports resuming thyroid medication 3 days ago. Reports drinking about 32 ounces of water per day but also drinks coffee and soda. Social history: Smokes 5 to 8 cigarettes/day, smoking since age 16, social alcohol use, denies occasional drug use Surgical history: Hysterectomy, cholecystectomy, left eyeball removed status post diabetic retinopathy and glaucoma Family history: Mother CAD Admission Exam Per Admitting Provider General: In NAD HEENT: dry oral mucosa Neck: no thyromegaly or LAD appreciated Neuro: A&O x 4 Pulm: CTAB coarse but equal breath sounds bilaterally CV: RRR, no m/r/g Abdomen:+BS, no TTP in all quadrants, non-distended LE: no LE edema, no calf TTP Principal Diagnosis Thyroid Myxedema, Uncontrolled Diabetes Type 1 Discharge Exam Constitutional WD/WN, vitals as above Respiratory normal respiratory effort, lungs clear to auscultation Cardiovascular RRR, no murmur, no edema Gastrointestinal (Abdomen) normal bowel sounds, soft, nontender, no hepatosplenomegaly Skin no rashes, warm and dry Psychiatric A+Ox3, euthymic affect Discharge Data Allergies Allergy/AdvReac Type Severity Reaction Status Date / Time No Known Allergies Allergy Verified 11/23/18 20:23 Consultations 11/23/18 21:08 ED Decision to Admit Stat 11/26/18 12:31 Consult ROBERT property man Routine Hospital Course (1) Myxedema: 48 yo F PMHx hypothyroidism, poorly controlled DM1, HLD initially admitted for abnormal TSH, CK, and hyponatremia with elevated blood sugars now stable for discharge home with self care. Myxedema - Initially TSH 106 given loading dose of levothyroxine and resumed home dose, Free T4 continued to improve during admission and now while TSH not yet at normal range she is improving clinically and has instructions regarding follow up. - Has been instructed to take her daily levothyroxine as she had not for a number of months which is likely the cause of the hyponatremia, elevated CK and muscle cramping, and elevated LFTs as all of these have continued to downtrend following thyroid replacement therapy. - Has follow up with her PCP and with [facility]. Uncontrolled DM1 - During admission it was found that the patient did not have a clear understanding of what diabetes is, why it is bad to have high sugars, or how to titrate her insulin to get her sugars in a normal range. Hgb A1c 9.1 on admission. - Since admission pt has been extensively educated by both primary team and pharmcacy regarding consequences of high sugars and how to properly manage her insulin pump. Today the pt was managing her own pump with sugars post prandial in the 150 range which is a massive improvement from arrival when sugars were in the high 300s. - Has follow up with her PCP and with [facility] regarding further titration of basal insulin and ongoing education in diabetes management. Acute hyponatremia: - On presentation she was hyponatremic, but laboratories indicated this was likely be a consequence of thyroid myxedema and not SiADH or other etiologies. - With rehydration and thyroid replacement therapy patient was safely returned to normal sodium levels. Pt can resume normal diet at home, with caveat that diet should be DM1 friendly. Elevated CPK: - Related to hypothyroidism and thyroid myxedema. - No longer a concern as was downtrending and a result of her thyroid abnormality. Elevated LFTs - Due to thyroid abnormalities. Have downtrended continually in hospital. - Pt will likely get labwork after PCP appointment for a number of things: LFTs, BMP, thyroid levels, CK. HLD - Pt may resume statin and follow up with PCP. (2) Hypothyroidism: (3) Diabetes mellitus: (4) Elevated CPK: (5) LFTs abnormal: (6) Acute hyponatremia: (7) HLD (hyperlipidemia): Total Time Total Time Spent Total Time Spent (In Minutes): 35 minutes Discharge Plan Discharge Items Patient Disposition: Home - Self-Care Reason For Visit: TYROID MYXEDEMA Discharge Diagnosis: High sugars and non-functioning thyroid Discharge Goals: Improve disease control, Increase independence, Improve nutritional status and Learn about illness Activity: Resume your previous activity Non-emergency contact: Primary Care Provider Call non-emergency contact if: you have any medication questions Follow-up/Referrals: Colin Arita [Primary Care Provider] - 12/05/18 2:15 pm (Please, follow up at [facility] in [place] with Dr. Colin Arita's clinical medical assistant, Dian Martinez PA-C, on WednesdayDecember 05 at 2:15 pm. *If you need to change this appointment, call their office at [phone].) Diet: Carb Count or DM1 Addtl Provider Instructions: You were admitted to the hospital because you were having severe body cramping. While you were here we determined that the likely reason for your cramping was because you were not taking your thyroid medicine for quite some time. While you were here we also found that your sugars were very high. We talked a lot during your stay about the importance of taking your medicine every day for your thyroid, and we also talked a lot about your diabetes and how to control your sugars better. After your thyroid and sugars continued to improve we now feel comfortable sending you home with specific instructions for your thyroid and diabetes moving forward. 1) Please take your thyroid medicine, the levothyroxine every day in the morning. It is important to take this medication on an empty stomach. In order to remember your medicine every day, a good strategy to try is to get a pill box with the days of the week on it, and put that right on your sink in your bathroom. That way when you wake up in the morning and take your shower and brush your teeth the medicine will be right there to take. It may also be helpful to set a daily alarm in your phone to remind you to take your medicine. 2) For your diabetes, we have talked a lot about how high sugars clog arteries, so it is important to check your sugar in the morning and after every meal because you want your sugar after eating to be no higher than about 150. You will have to adjust your insulin depending on how many carbohydrates you eat, and your insulin pump can help you in figuring out how many units to add depending on how many carbs you eat. After you eat you can check your sugars to see if you added enough insulin. 3) Someone from the hospital will call you regarding scheduling a follow up appointment with Heather Rea regarding your sugars. You have an appointment with your family doctor Dr. Arita on December 05 at 2:15PM with [facility]. 4) If you have any questions or you start to develop trouble breathing, feeling like you are going to pass out, or get those cramps again in your legs please seek medical attention. Prescriptions: Continued simvastatin 20 mg tablet 20 mg PO QPM RF: 0 lisinopril 5 mg tablet 5 mg PO QPM RF: 0 insulin lispro [Humalog U-100 Insulin] 100 unit/mL solution See Rx Instructions .ROUTE .COMPLEX RF: 0 albuterol sulfate [Ventolin HFA] 90 mcg/actuation HFA aerosol inhaler 2 puff inhalation Q6H PRN (Reason: Shortness Of Breath Or Wheezing) RF: 0 loratadine 10 mg tablet 10 mg PO QPM RF: 0 levothyroxine 112 mcg tablet 112 mcg PO QAM RF: 0 Stand-Alone Forms: [facility] [employer]/Other Patient Handouts: Diabetes Carbs, Diabetes Meal Planning Discharge Orders: Discharge Order (Routine); Ordered 11/26/18 Ordered By: Mandy Hannon Admission Data Admit Date/Time: 11/23/18 22:46 Attending Provider: Marisol Mock Admit Provider: Leonardo Acosta Primary Care Provider: Colin Arita Other Providers: Leonardo Acosta ; Modesto Murray Service: Telemetry Other Interventions: Discharge Summary Assessment (RN) Last Done: 11/26/18 12:28 DC Date/Time DO NOT enter until pt leaves facility: 11/26/18 13:05 Supervising Physician Co-Signing Physician Notes Resident Physician Supervision Note: I independently interviewed and examined the patient and verified the oconnor history and physical, reviewed labs and image studies, discussed the case with the resident Dr. Hannon and agree with the findings and care plan. Time spent in discharge 35 min Resident Activity Tracking Resident Involvement: Resident Care Provided Care Provided: Adult Hospital Medicine
== END 2018-11-26 13:05 | disposition home or self-care (01) | DRG 644 ==
LOC: MERGE 17:51 → ED 17:51 → 2S 22:46 → SUATTDRO 22:46 → 2S 23:38
DX: Z90.710 Acquired absence of both cervix and uterus; E03.9 Hypothyroidism, unspecified; N17.9 Acute kidney failure, unspecified; Z91.14 Patient's other noncompliance with medication regimen; Z79.4 Long term (current) use of insulin; I10 Essential (primary) hypertension; E10.65 Type 1 diabetes mellitus with hyperglycemia; F17.210 Nicotine dependence, cigarettes, uncomplicated; E87.1 Hypo-osmolality and hyponatremia

== ENCOUNTER 2022-08-07 19:09 | Inpatient (IN) ==
[2022-08-07] MEDS ORDERED: oxyCODONE HCL IR 5 MG TAB (IMMEDIATE RELEASE) PO STA (19:37)
--- NOTE | 2022-08-07 19:42 | Emergency Department Note ---
ED Provider Note History of Present Illness Chief Complaint: Hip Pain Stated Complaint: Fall, L Hip Pain Time Seen by Provider: 08/07/22 19:28 52-year-old female who presents to the emergency department via ambulance for evaluation of an injury to her left hip. The patient reports that her dog walks very close to her feet. When she tried to avoid her dog, she tripped over a stool, landing on her left hip. The patient reports that the pain is worsened with ambulation. She denies any back pain, chest pain, other extremity injuries or head injury. Patient does not take any blood thinners. The patient rates her discomfort a 7 out of 10 on my exam. Home Medications Medication Instructions Recorded Confirmed Type albuterol sulfate 90 mcg/actuation 2 puff inhalation Q6H PRN 11/23/18 08/07/22 History aerosol inhaler (Ventolin HFA) Shortness Of Breath Or Wheezing lisinopril 5 mg tablet 5 mg PO QPM 11/23/18 08/07/22 History loratadine 10 mg tablet 10 mg PO QPM 11/23/18 08/07/22 History simvastatin 20 mg tablet 20 mg PO QPM 11/23/18 08/07/22 History insulin aspart U-100 100 unit/mL 0 unit continuous subcutaneous 08/07/22 08/07/22 History subcutaneous solution infusion CONTINOUS levothyroxine 100 mcg tablet 100 mcg PO [id number] 08/07/22 08/07/22 History Allergies Allergy/AdvReac Type Severity Reaction Status Date / Time No Known Allergies Allergy Verified 08/07/22 21:24 Past Med/Surg History Medical History (Updated 08/07/22 @ 22:16 by Jr Lee) Diabetes type I Hypertension Hyperthyroidism Family History Other No pertinent family history in first degree relatives Social History Smoking Status: Current every day smoker Do You Dip or Chew Tobacco: No; Hx Alcohol Use: Yes Alcohol type: wine Hx Substance Use: No Preferred Language: Greenlandic Communication Ability: Effective Hemstitcher Required: No Beliefs That Will Affect Care: None Current Living Situation: Family Feels Safe at Home: Yes Assistive Devices: None Physical Exam Vital Signs Vital Signs - 24 hr 08/07/22 19:14 08/07/22 22:17 08/07/22 22:44 Temperature 36.6 C Temperature Source Temporal Artery Scan Pulse Rate 76 Pulse Rate [Apical] 72 Pulse Rhythm Regular Pulse Strength Normal Respiratory Rate 19 19 Respiratory Effort / Characteristics Non-Labored Spontaneous Respiratory Depth Normal Blood Pressure 105/63 Blood Pressure [Right Arm] 138/74 Blood Pressure Mean 77 Blood Pressure Mean [Right Arm] 95 Blood Pressure Position Sitting Pulse Oximetry 97 97 88 L Oxygen Delivery Method Room Air Room Air Room Air Sepsis Recent Fever Within 48 Hours No Sepsis New/Unexplained Change in Mental Status N/A Sepsis Action Taken by Nursing No Action Required Oxygen Flow Rate - Titration 2 Pulse Oximetry Post Tiitration 97 CONSTITUTIONAL: Healthy and well nourished. Patient appears in moderately severe discomfort. HEENT: Normocephalic, atraumatic. NECK: Full active range of motion without discomfort. MUSCULOSKELETAL: Patient has difficulty fully extending the hip, holding the hip in a flexed position. She has discomfort with logroll of the hip. No obvious focal tenderness to palpation through the lower lumbar spine or SI joint. INTEGUMENTARY: No rash or other significant dermatologic conditions noted. HEMATOLOGIC: No ecchymosis or petechiae. PSYCHIATRIC: Positive affect. NEUROLOGIC: Left lower extremity is sensory intact. Course Course Patient history and physical exam were performed. Nurses notes were reviewed. Vital signs were reviewed and were normal. The patient was administered Oxy IR 5 mg for pain. X-rays of the left hip with a pelvic view confirms a femoral neck fracture without evidence for dislocation or other pelvic fractures. Findings were discussed with the patient. At this point, IV access was established, and labs were drawn and reviewed, showing a mild leukocytosis. CMP shows an elevated glucose of 159. COVID-19 PCR test was negative. The patient was administered IV morphine and Zofran for additional pain relief. An ECG and portable chest x-ray were also ordered preoperatively. I did reach out to Dr. Baldwin, orthopedic surgeon on-call, who will take the patient to the OR tomorrow. The case was then [facility] do the [facility]. Please see their dictations for further treatment and final disposition. Administered Medications Discontinued Medications Morphine Sulfate (Morphine Sulfate 4 Mg/Ml 1 Ml Carp\Vial) 4 mg IV NOW STA Stop: 08/07/22 21:06 Last Admin: 08/07/22 21:37 Dose: 4 mg Documented By: SUSIE Ondansetron HCl (Ondansetron Inj 2 Mg/Ml 2 Ml Vial) 4 mg IV NOW STA Stop: 08/07/22 21:06 Last Admin: 08/07/22 21:31 Dose: 4 mg Documented By: SUSIE Oxycodone HCl (Oxycodone Hcl Ir 5 Mg Tab (Immediate Release)) 5 mg PO NOW STA Stop: 08/07/22 19:38 Last Admin: 08/07/22 19:42 Dose: 5 mg Documented By: Medical Decision Making Medical Records Attestation: I reviewed the patient's medical records. Home Medications was personally reviewed by me Laboratory Data Attestation: I reviewed the patient's lab results. 08/07/22 21:38 08/07/22 21:38 Lab Results 08/07/22 08/07/22 08/07/22 Range/Units 21:38 21:38 21:38 WBC 12.52 H (4.8-10.8) K/ul RBC 3.33 L (4.20-5.40) M/uL Hgb 10.7 L (12.0-16.0) g/dl Hct 30.7 L (37.0-47.0) % MCV 92.2 (80.0-100.0) fL MCH 32.1 (25.0-34.0) pg MCHC 34.9 (32.0-36.0) g/dL RDW Std Deviation 43.1 (36.4-46.3) fL RDW Coeff of Dilshad 12.9 (11.5-14.5) % Plt Count 317 (130-400) K/uL MPV 9.1 L (9.4-12.4) fL Immature Gran % (Auto) 0.2 % Neut % (Auto) 69.4 % Lymph % (Auto) 19.9 % [place] % (Auto) 6.7 % Eos % (Auto) 3.4 % Baso % (Auto) 0.4 % Neut # (Auto) 8.70 H (1.40-6.50) K/uL Lymph # (Auto) 2.49 (1.2-3.4) K/uL [place] # (Auto) 0.84 H (0.11-0.59) K/uL Eos # (Auto) 0.42 (0-0.50) K/uL Baso # (Auto) 0.05 (0-0.2) K/uL Immature Gran # (Auto) 0.02 (0.01-0.20) K/uL PT 10.2 (9.0-12.0) Seconds INR 0.9 (0.9-1.1) APTT 24.6 (21.0-31.0) Seconds PTT Ratio 0.9 Sodium 136 (136-145) mmol/L Potassium 4.3 (3.5-5.1) mmol/L Chloride 106 (98-107) mmol/L Carbon Dioxide 26 (21-32) mmol/L Anion Gap 4 (3-11) BUN 13 (6-23) mg/dl Creatinine 0.92 (0.6-1.2) mg/dl Est Cr Clr Drug Dosing 62.6 ml/min Est GFR ( Amer) 83.0 ml/min Est GFR (Non-Af Amer) 71.6 ml/min BUN/Creatinine Ratio 14.1 (10-20) Glucose 159 H (70-99(Fasting)) mg/dl Calcium 9.2 (8.6-10.3) mg/dl Total Bilirubin 0.3 (0.2-1.0) mg/dl AST 19 (13-39) U/L ALT 21 (7-52) U/L Alkaline Phosphatase 110 H (34-104) U/L Total Protein 6.0 (6.0-8.3) gm/dl Albumin 3.5 (3.4-5.0) gm/dl Globulin 2.5 (2.5-4.0) gm/dl Albumin/Globulin Ratio 1.4 (0.9-2) SARS-CoV-2, RNA, NAAT (NEGATIVE) 08/07/22 Range/Units 21:40 WBC (4.8-10.8) K/ul RBC (4.20-5.40) M/uL Hgb (12.0-16.0) g/dl Hct (37.0-47.0) % MCV (80.0-100.0) fL MCH (25.0-34.0) pg MCHC (32.0-36.0) g/dL RDW Std Deviation (36.4-46.3) fL RDW Coeff of Dilshad (11.5-14.5) % Plt Count (130-400) K/uL MPV (9.4-12.4) fL Immature Gran % (Auto) % Neut % (Auto) % Lymph % (Auto) % [place] % (Auto) % Eos % (Auto) % Baso % (Auto) % Neut # (Auto) (1.40-6.50) K/uL Lymph # (Auto) (1.2-3.4) K/uL [place] # (Auto) (0.11-0.59) K/uL Eos # (Auto) (0-0.50) K/uL Baso # (Auto) (0-0.2) K/uL Immature Gran # (Auto) (0.01-0.20) K/uL PT (9.0-12.0) Seconds INR (0.9-1.1) APTT (21.0-31.0) Seconds PTT Ratio Sodium (136-145) mmol/L Potassium (3.5-5.1) mmol/L Chloride (98-107) mmol/L Carbon Dioxide (21-32) mmol/L Anion Gap (3-11) BUN (6-23) mg/dl Creatinine (0.6-1.2) mg/dl Est Cr Clr Drug Dosing ml/min Est GFR ( Amer) ml/min Est GFR (Non-Af Amer) ml/min BUN/Creatinine Ratio (10-20) Glucose (70-99(Fasting)) mg/dl Calcium (8.6-10.3) mg/dl Total Bilirubin (0.2-1.0) mg/dl AST (13-39) U/L ALT (7-52) U/L Alkaline Phosphatase (34-104) U/L Total Protein (6.0-8.3) gm/dl Albumin (3.4-5.0) gm/dl Globulin (2.5-4.0) gm/dl Albumin/Globulin Ratio (0.9-2) SARS-CoV-2, RNA, NAAT NEGATIVE (NEGATIVE) Imaging Data Attestation: I personally reviewed and interpreted this imaging study as follows: My Impression: My interpretation of a left hip x-ray with a pelvic view shows a femoral neck fracture without any significant displacement, dislocation or other pelvic fractures. Radiologist report is pending. Prescription Drug Monitoring [place] Drug Monitoring Program reviewed and no issues identified MDM Narrative See ED Course section for further details of today's visit. The patient suffered a mechanical fall from a trip on a stool, landing on her left hip. The patient denies any other injuries from her fall. X-rays of the left hip and pelvis confirms a femoral neck fracture. The patient will be admitted for further surgical management. Impression Closed fracture of neck of left femur, Fall from slip, trip, or stumble Discharge Plan Visit Data Chief Complaint: Hip Pain Stated Complaint: Fall, L Hip Pain ED Provider: Modesto Delong ED Midlevel Provider: Jr Lee Discharge Problem: Closed fracture of neck of left femur, Fall from slip, trip, or stumble Forms Stand Alone Forms: [employer] Prescriptions Prescriptions: No Action simvastatin 20 mg tablet 20 mg PO QPM lisinopril 5 mg tablet 5 mg PO QPM albuterol sulfate [Ventolin HFA] 90 mcg/actuation HFA aerosol inhaler 2 puff inhalation Q6H PRN (Reason: Shortness Of Breath Or Wheezing) loratadine 10 mg tablet 10 mg PO QPM levothyroxine 100 mcg tablet 100 mcg PO [id number] Rx Instructions: TAKES QPM. PER EXT MED HX. TAKES MONDAYS THROUGH SATURDAYS. SKIPS SUNDAYS. insulin aspart U-100 100 unit/mL solution 0 unit continuous subcutaneous infusion CONTINOUS MDD 100 UNITS/24 HOURS Referrals Referrals: Colin Arita [Primary Care Provider] - Closed fracture of neck of left femur Qualifiers: Encounter type: initial encounter Qualified Code(s): S72.002A - Fracture of unspecified part of neck of left femur, initial encounter for closed fracture Fall from slip, trip, or stumble Qualifiers: Encounter type: initial encounter Qualified Code(s): W01.0XXA - Fall on same level from slipping, tripping and stumbling without subsequent striking against object, initial encounter
[2022-08-07] MEDS ORDERED: MoRPHine SULFATE 4 MG/ML 1 ML CARP\\VIAL IV STA (21:05)
[2022-08-07] MEDS ORDERED: ONDANSETRON INJ 2 MG/ML 2 ML VIAL IV STA (21:05)
[2022-08-07 21:51] LABS: Basophils # (auto) 0.05 K/uL (0-0.2); Basophils % (auto) 0.4 %; Eosinophils # (auto) 0.42 K/uL (0-0.50); Eosinophils % (auto) 3.4 %; Hematocrit (blood only) 30.7 % (37.0-47.0); Hemoglobin 10.7 g/dl (12.0-16.0); Immature Granulocytes # (auto) 0.02 K/uL (0.01-0.20); Immature Granulocytes % (auto) 0.2 %; Lymphocytes # (auto) 2.49 K/uL (1.2-3.4); Lymphocytes % (auto) 19.9 %; Mean Corpuscular Hemoglobin 32.1 pg (25.0-34.0); Mean Corpuscular Hgb Conc 34.9 g/dL (32.0-36.0); Mean Corpuscular Volume 92.2 fL (80.0-100.0); Mean Platelet Volume 9.1 fL (9.4-12.4); Monocytes # (auto) 0.84 K/uL (0.11-0.59); Monocytes % (auto) 6.7 %; Neutrophils % (auto) 69.4 %; Platelet Count 317 K/uL (130-400); RDW Coefficient of Variation 12.9 % (11.5-14.5); RDW Standard Deviation 43.1 fL (36.4-46.3); Red Blood Count 3.33 M/uL (4.20-5.40); White Blood Count 12.52 K/ul (4.8-10.8)
[2022-08-07 22:13] LABS: Albumin Globulin Ratio 1.4 (0.9-2); Albumin Level 3.5 gm/dl (3.4-5.0); BUN Creatinine Ratio 14.1 (10-20); Bilirubin,Total 0.3 mg/dl (0.2-1.0); Calcium 9.2 mg/dl (8.6-10.3); Creatinine Clr Calc Pharmacy 62.6 ml/min; Est GFR (Non-African American) 71.6 ml/min; Globulin 2.5 gm/dl (2.5-4.0); Potassium 4.3 mmol/L (3.5-5.1)
[2022-08-07 22:20] LABS: INR 0.9 (0.9-1.1); Partial Thromboplastin Ratio 0.9; Partial Thromboplastin Time 24.6 Seconds (21.0-31.0); Prothrombin Time 10.2 Seconds (9.0-12.0)
--- NOTE | 2022-08-08 00:04 | History & Physical Report ---
Date of Service August 08, 2022 Assessment & Plan (1) Closed fracture of neck of left femur: Plan: Patient presents to ED with complaints of left hip pain after sustaining a fall. Patient had tried to avoid her dog walking close to her legs and had lost her balance and tripped on a stool and landed on her left hip. Patient presents with left hip pain and pain worsening with ambulation. X-ray of the left hip preliminary report shows femoral neck fracture without evidence of dislocation. Orthopedic consulted from ED, and plan is to take the patient to the OR in a.m. Patient will be kept n.p.o. from midnight in anticipation of surgery. (2) Diabetes mellitus: Plan: Patient is on insulin pump. Patient will transition to sliding scale coverage with short acting insulin based on fingerstick monitoring in anticipation of surgery. Hemoglobin A1c level (3) Hypothyroidism: Plan: Continue home dose of levothyroxine 100 mcg daily Check TSH level (4) Hypertension: Plan: Continue home dose of lisinopril 5 mg daily Monitor blood pressure trend titrate meds as tolerated (5) HLD (hyperlipidemia): Plan: Continue statin therapy with simvastatin 20 mg daily History of Present Illness Chief Complaint: Patient presents to ED with complaints of left hip pain following a fall Primary Care Provider: Colin Diego Juan J This is a 52-year-old female with past medical history significant of hypertension, hyperlipidemia, insulin-dependent diabetes mellitus on insulin pump, hypothyroidism on thyroid replacement who presents to the emergency department with complains of left hip pain following a mechanical fall. Patient reports that she was walking when she tried to avoid stepping on her dog and in the process lost her balance and tripped over a stool and landed on her left side of her hip. Patient subsequently developed acute pain over the left hip area and was unable to ambulate without pain. Patient had moderate to severe hip pain and was evaluated in the ED with a x-ray of the left hip that confirmed left hip fracture involving the femoral neck. Based on preliminary report it appears that the fracture was not displaced. ED had contacted orthopedic on-call and based on confirmation of the ED patient is scheduled for surgical intervention in the OR in a.m. Patient denies any chest pain or shortness of breath Allergies Allergy/AdvReac Type Severity Reaction Status Date / Time No Known Allergies Allergy Verified 08/07/22 21:24 Home Medications Medication Instructions Recorded Confirmed Type albuterol sulfate 90 mcg/actuation 2 puff inhalation Q6H PRN 11/23/18 08/07/22 History aerosol inhaler (Ventolin HFA) Shortness Of Breath Or Wheezing lisinopril 5 mg tablet 5 mg PO QPM 11/23/18 08/07/22 History loratadine 10 mg tablet 10 mg PO QPM /07/0808/07/22 History simvastatin 20 mg tablet 20 mg PO QPM 11/23/18 08/07/22 History insulin aspart U-100 100 unit/mL 0 unit continuous subcutaneous 08/07/22 08/07/22 History subcutaneous solution infusion CONTINOUS levothyroxine 100 mcg tablet 100 mcg PO [id number] 08/07/22 08/07/22 History Past Med/Surg History Medical History (Updated 08/08/22 @ 06:48 by Chase Messer MD) Diabetes type I Hypertension Hyperthyroidism Family History Other No pertinent family history in first degree relatives Social History Smoking Status: Current every day smoker Second Hand Exposure: Yes; Do You Dip or Chew Tobacco: No; Tobacco Cessation Education Requested by Patient: No Hx Alcohol Use: Yes Alcohol type: wine Hx Substance Use: No Preferred Language: Lithuanian Communication Ability: Effective Pt Escort Required: No Beliefs That Will Affect Care: None Current Living Situation: Spouse Other Information That Helps Us Care for You: No Feels Safe at Home: Yes Safety Concerns: Feels Safe At This Time Assistive Devices: Glasses and Other Assistive Devices Comment: insulin pump Review of Systems Review of Systems: Constitutional-no fever or chills ENT-no blurred vision, no double vision, no epistaxis, no sore throat Respiratory- no shortness of breath noted with exertion. No wheezing Cardiac-no palpitations, no chest pain, no syncope GI-no nausea, vomiting, diarrhea, melena, hematochezia -no urinary retention, no urinary incontinence, Musculoskeletal-left hip pain Skin- no pruritus Neuro-no isolated weakness, Physical Exam Physical Exam: Head and ENT no thyroid enlargement trachea midline Cardiovascular S1-S2 are normal no S3 Lungs bilateral air entry fair no wheezing Abdomen soft nondistended positive bowel sounds no rebound tenderness Extremity shows trace edema, pain over left hip area secondary to fall Neurologically no focal deficits Skin shows no rash no cyanosis Results & Data Results & Data Vital Signs (Past 12 Hours) Vital Signs Temp Pulse Pulse Resp BP BP Pulse Ox 08/07/22 23:41 77 20 131/74 99 08/07/22 22:44 88 L 08/07/22 22:17 72 19 138/74 97 08/07/22 19:14 36.6 C 76 19 105/63 97 O2 Del Method 08/07/22 23:41 Room Air 08/07/22 22:44 Room Air 08/07/22 22:17 Room Air 08/07/22 19:14 Room Air Laboratory Results Short CBC 08/07/22 Range/Units 21:38 WBC 12.52 H (4.8-10.8) K/ul Hgb 10.7 L (12.0-16.0) g/dl Hct 30.7 L (37.0-47.0) % Plt Count 317 (130-400) K/uL BMP 08/07/22 21:38 Sodium 136 Potassium 4.3 Chloride 106 Carbon Dioxide 26 BUN 13 Creatinine 0.92 Glucose 159 H Calcium 9.2 Liver Function 08/07/22 Range/Units 21:38 Total Bilirubin 0.3 (0.2-1.0) mg/dl AST 19 (13-39) U/L ALT 21 (7-52) U/L Alkaline Phosphatase 110 H (34-104) U/L Albumin 3.5 (3.4-5.0) gm/dl Code Status & VTE Plan VTE Prophylaxis Plan VTE Prophylaxis will be ordered: Yes PG Care Time/CCT Total # of Minutes Spent Total Time Spent with Patient: Total time spent is greater than 50% in coordination of care (as documented) at patient's floor/unit and/or counseling patient: Coding Level of Care Code None Diagnoses Closed fracture of neck of left femur S72.002A Encounter type: initial encounter Diabetes mellitus E11.9 Diabetes mellitus type: type 1 Hypothyroidism E03.9 Hypertension I10 HLD (hyperlipidemia) E78.5 (1) Closed fracture of neck of left femur Encounter type: initial encounter Qualified Code(s): S72.002A - Fracture of unspecified part of neck of left femur, initial encounter for closed fracture (2) Diabetes mellitus Diabetes mellitus type: type 1
[2022-08-08] MEDS ORDERED: ALUMINUM/MAGNESIUM SUSP 30 ML UDC PO PRN (01:44)
[2022-08-08] MEDS ORDERED: POLYETHYLENE (MIRALAX) 17 GM PACK PO PRN (01:44)
[2022-08-08] MEDS ORDERED: ALBUTEROL HFA 8 GM INHALER INH PRN (01:44)
[2022-08-08] MEDS ORDERED: ACETAMINOPHEN 325 MG TAB PO PRN (01:44)
[2022-08-08] MEDS ORDERED: HYDROmorphone INJ 0.5 MG/0.5 ML SYR IV PRN (02:38)
[2022-08-08] MEDS: ACETAMINOPHEN 500 MG TAB PO SCH ×3 (02:58→22:35)
[2022-08-08] MEDS: HYDROmorphone INJ 0.5 MG/0.5 ML SYR IV PRN ×4 (02:59→18:03)
[2022-08-08] MEDS ORDERED: HEPARIN SOD 5,000 UNIT/0.5 ML VIAL SQ SCH (06:00)
[2022-08-08] MEDS ORDERED: MIDAZOLAM HCL 1 MG/ML 2ML VIAL ONE ×2 (06:48)
[2022-08-08] MEDS ORDERED: fentaNYL citrate PF 100 MCG/2 ML VIAL ONE (06:48)
[2022-08-08] MEDS ORDERED: PHARMACY GLYCEMIC MGMT CONSULT PRN (07:02)
[2022-08-08] MEDS ORDERED: GLUCOSE 10 TAB/TUBE PO PRN (07:02)
[2022-08-08] MEDS ORDERED: DEXTROSE 50% 50 ML SYRINGE IV PRN (07:02)
[2022-08-08] MEDS ORDERED: GLUCOSE 40% GEL 15 GM TUBE PO PRN (07:02)
[2022-08-08] MEDS ORDERED: CARBOHYDRATES FOR HYPOGLYCEMIA PO PRN (07:02)
[2022-08-08] MEDS ORDERED: GLUCAGON FOR INJ 1 MG VIAL SQ PRN (07:02)
[2022-08-08] MEDS ORDERED: BUPIVACAINE 0.5 % 5 MG/1 ML PF 10ML VIAL ONE (07:05)
--- NOTE | 2022-08-08 07:07 | Electrocardiogram Report ---
Test Reason : Blood Pressure : / mmHG Vent. Rate : 072 BPM Atrial Rate : 072 BPM P-R Int : 148 ms QRS Dur : 074 ms QT Int : 392 ms P-R-T Axes : 054 020 042 degrees QTc Int : 429 ms Normal sinus rhythm Low voltage QRS Poor R wave progression, consider anterior AR vs. lead placement vs. LVH Abnormal ECG When compared with ECG of 23-NOV-2018 19:43, No significant change was found Confirmed by Jabari Echavarria ([id number]) on 08/08/2022 7:06:52 AM Referred By: REFERRED SELF Confirmed By:Shlomo Echavarria
--- NOTE | 2022-08-08 07:19 | Orthopedic Consultation ---
Date of Consultation August 08, 2022 Assessment & Plan (1) Closed fracture of neck of left femur: Discussed the diagnosis with the patient. Surgery is recommended to allow her to regain the ability to ambulate and decrease the risk of nonunion and clear necrosis. Because of her diabetes she is at risk for increased complications of the surgery. Reviewed the risks and benefits surgery, alternatives to surgery, and expected outcomes. Patient elects to proceed. All questions were answered. Informed consent was signed. Proceed to the operating room this morning. Surgical site was marked. Readmitted to the internal medicine service after surgery. (2) Diabetes mellitus: History of Present Illness Attending Physician: Dilip Guadarrama MD History of Present Illness This is a 52-year-old female with past medical history significant of hypertension, hyperlipidemia, insulin-dependent diabetes mellitus on insulin pump, hypothyroidism on thyroid replacement who presents to the emergency department with complains of left hip pain following a mechanical fall. Patient reports that she was walking when she tried to avoid stepping on her dog and in the process lost her balance and tripped over a stool and landed on her left side of her hip. Patient subsequently developed acute pain over the left hip area and was unable to ambulate without pain. Patient had moderate to severe hip pain and was evaluated in the ED with a x-ray of the left hip that confirmed left hip fracture involving the femoral neck. Orthopedics was consulted for evaluation and management. Patient was seen and examined on the floor this morning. She reports pain is isolated to the left hip. Denies any previous injuries to the left hip. No numbness or tingling down the leg. Allergies Allergy/AdvReac Type Severity Reaction Status Date / Time No Known Allergies Allergy Verified 08/07/22 21:24 Home Medications Medication Instructions Recorded Confirmed Type albuterol sulfate 90 mcg/actuation 2 puff inhalation Q6H PRN 11/23/18 08/07/22 History aerosol inhaler (Ventolin HFA) Shortness Of Breath Or Wheezing lisinopril 5 mg tablet 5 mg PO QPM 11/23/18 08/07/22 History loratadine 10 mg tablet 10 mg PO QPM 11/23/18 08/07/22 History simvastatin 20 mg tablet 20 mg PO QPM 11/23/18 08/07/22 History insulin aspart U-100 100 unit/mL 0 unit continuous subcutaneous 08/07/22 08/07/22 History subcutaneous solution infusion CONTINOUS levothyroxine 100 mcg tablet 100 mcg PO [id number] 08/07/22 08/07/22 History Patient History Medical History Diabetes type I Hypertension Hyperthyroidism Family History Other No pertinent family history in first degree relatives Social History Smoking Status: Current every day smoker Second Hand Exposure: Yes; Do You Dip or Chew Tobacco: No; Tobacco Cessation Education Requested by Patient: No Hx Alcohol Use: Yes Alcohol type: wine Hx Substance Use: No Preferred Language: Yoruba Communication Ability: Effective [employer] Required: No Beliefs That Will Affect Care: None Current Living Situation: Spouse Other Information That Helps Us Care for You: No Feels Safe at Home: Yes Safety Concerns: Feels Safe At This Time Assistive Devices: Glasses and Other Assistive Devices Comment: insulin pump Physical Exam Physical Exam: Exam she is resting comfortably in bed in no acute distress. HEENT exam reveals patient to be missing all of her teeth. Cardiac exam shows regular rate and rhythm no rubs murmurs gallops. Lung exam clear to auscultation bilaterally. Extremity exam: Skin is intact over the left hip. She has palpable pulses distally. Sensory intact to light touch dorsal and plantar aspects of the foot. Results & Data Vital Signs (Past 12 Hours) Vital Signs Temp Pulse Pulse Pulse Pulse Resp BP 08/08/22 01:45 08/08/22 01:45 08/08/22 01:38 36.8 C 66 66 16 108/68 08/08/22 01:45 36.8 C 66 16 108/68 08/08/22 01:21 70 20 128/71 08/07/22 22:22 72 08/07/22 23:41 77 20 131/74 08/07/22 22:44 08/07/22 22:17 72 19 138/74 Pulse Ox O2 Del Method 08/08/22 01:45 Room Air 08/08/22 01:45 Room Air 08/08/22 01:38 95 Room Air 08/08/22 01:45 95 Room Air 08/08/22 01:21 98 Room Air 08/07/22 22:22 08/07/22 23:41 99 Room Air 08/07/22 22:44 88 L Room Air 08/07/22 22:17 97 Room Air Diagnostic Findings X-rays done yesterday in the emergency demonstrate a subcapital left femoral neck fracture with slight valgus impaction. (1) Closed fracture of neck of left femur Encounter type: initial encounter Qualified Code(s): S72.002A - Fracture of unspecified part of neck of left femur, initial encounter for closed fracture (2) Diabetes mellitus Diabetes mellitus type: type 1
[2022-08-08 07:23] LABS: Hematocrit (blood only) 31.6 % (37.0-47.0); Hemoglobin 11.1 g/dl (12.0-16.0); Mean Corpuscular Hgb Conc 35.1 g/dL (32.0-36.0); Mean Corpuscular Volume 91.1 fL (80.0-100.0); Mean Platelet Volume 9.4 fL (9.4-12.4); Platelet Count 320 K/uL (130-400); RDW Coefficient of Variation 12.6 % (11.5-14.5); RDW Standard Deviation 41.6 fL (36.4-46.3); Red Blood Count 3.47 M/uL (4.20-5.40)
--- NOTE | 2022-08-08 07:36 | Anesthesiology Consultation ---
Date of Service August 08, 2022 Assessment & Plan Chart Review Chart Review: Acceptable Risk for Surgery Consults Requested none ASA ASA3 Proposed Anesthesia Anesthesia Type: MAC Spinal Risk / Benefits Reviewed With: PT / POA / Parent / Guardian, Accepts Plan and Informed Consent Obtained History Surgery Operation Date: 08/08/22 07:30 Proposed Procedures p ORIF Left Hip Cannulated Screw - Dilip Baldwin MD Height/Weight Height: 5 ft 1 in Weight: 67.58 kg Allergies Allergy/AdvReac Type Severity Reaction Status Date / Time No Known Allergies Allergy Verified 08/07/22 21:24 Medications Home Medications Medication Instructions Recorded Confirmed Last Taken albuterol sulfate 90 mcg/actuation 2 puff inhalation Q6H PRN 11/23/18 08/07/22 Unknown aerosol inhaler (Ventolin HFA) Shortness Of Breath Or Wheezing lisinopril 5 mg tablet 5 mg PO QPM 11/23/18 08/07/22 08/06/22 loratadine 10 mg tablet 10 mg PO QPM 11/23/18 08/07/22 08/06/22 simvastatin 20 mg tablet 20 mg PO QPM 11/23/18 08/07/22 08/06/22 insulin aspart U-100 100 unit/mL 0 unit continuous subcutaneous 08/07/22 08/07/22 Unknown subcutaneous solution infusion CONTINOUS levothyroxine 100 mcg tablet 100 mcg PO [id number] 08/07/22 08/07/22 08/06/22 Active Medications Generic Name Dose Route Start Last Admin Trade Name Freq PRN Reason Stop Dose Admin Acetaminophen 1,000 mg 08/08/22 03:00 08/08/22 02:58 Acetaminophen 500 Mg Tab PO 09/07/22 02:59 1,000 mg Q8H RAEANN Administration Heparin Sodium (Porcine) 5,000 units 08/08/22 06:00 08/08/22 05:48 Heparin Sod 5,000 Unit/0.5 Ml Vial SQ 08/08/22 14:01 5,000 units Q8 RAEANN Administration Hydromorphone HCl 0.5 mg 08/08/22 02:38 08/08/22 03:46 Hydromorphone Inj 0.5 Mg/0.5 Ml Syr IV 08/22/22 02:37 0.5 mg Q3H PRN Administration Pain (6,7,8,9,10) NPO Date Last Intake of Fluids: 08/08/22 Time Last Intake of Fluids: 01:00 Last Intake of Fluids Comment: Ice chips Date Last Intake of Solids: 08/07/22 Time Last Intake of Solids: 14:00 Last Intake of Solids Comment: Soup and Salad Past Medical History Medical History Diabetes type I Hypertension Hyperthyroidism Exercise / Class Metabolic Activity II 4-5 Yardwork/Stairs/Walk up hill Past Family History Family History Other No pertinent family history in first degree relatives Past Anesthesia History No Hx of Anesthesia Complications History of PONV No Hx of PONV Social History Smoking Status: Current every day smoker tobacco type: cigarettes Do You Dip or Chew Tobacco: No Hx Alcohol Use: Yes Alcohol type: wine alcohol intake frequency: 0-2 drinks per day Alcohol Intake Frequency Comment: small amount of wine and soda Hx Substance Use: No substance use type: does not use Review of Systems ROS Unobtainable: All systems reviewed & are unremarkable except as noted in HPI & below Constitutional: as per Subjective / HPI Physical Exam Vital Signs Last Vital Signs Temp 36.8 C 08/08/22 01:45 Pulse 66 08/08/22 01:45 Resp 16 08/08/22 01:45 BP 108/68 08/08/22 01:45 Pulse Ox 95 08/08/22 01:45 O2 Del Method Room Air 08/08/22 01:45 ENMT Thyromental Distance: > or= 3.5 Finger Breadths Mallampati Class: II Respiratory normal respiratory effort Auscultation: + breath sounds absent Cardiovascular Rate/Rhythm: regular rate and regular rhythm Neurologic moves all extremities Psychiatric Orientation: alert and oriented x 3 Testing Laboratory Results 08/08/22 07:10 PT 10.2 Seconds (9.0-12.0) 08/07/22 21:38 INR 0.9 (0.9-1.1) 08/07/22 21:38 APTT 24.6 Seconds (21.0-31.0) 08/07/22 21:38 08/08/22 08/08/22 05:54 01:44 POC Glucose 226 H 199 H
[2022-08-08 07:40] LABS: BUN Creatinine Ratio 17.7 (10-20); Calcium 9.3 mg/dl (8.6-10.3); Creatinine Clr Calc Pharmacy 73.3 ml/min; Est GFR (African American) 99.8 ml/min; Est GFR (Non-African American) 86.1 ml/min; Potassium 4.6 mmol/L (3.5-5.1)
--- NOTE | 2022-08-08 07:46 | XRay Report ---
XR hip LT 2V w pelvis CLINICAL HISTORY: s/p fall. Left hip pain. COMPARISON STUDY: None. FINDINGS: There is impacted left femoral neck fracture. No dislocation. The visualized pelvic bones a re intact. Soft tissues are unremarkable. IMPRESSION: Impacted left femoral neck fracture. ACT 112: Negative or not required by law. Electronically signed by: Sanjiv Solano M.D. 08/08/2022 7:45 AM
--- NOTE | 2022-08-08 07:57 | XRay Report ---
XR chest 1V portable HISTORY: Pre-op COMPARISON: Chest 11/23/2018. FINDINGS: The lungs are clear. Cardiac silhouette is normal in size. No pleural effusions. No pneumot horax. IMPRESSION: No acute process. ACT 112: Negative or not required by law. Electronically signed by: Sanjiv Solano M.D. 08/08/2022 7:56 AM
--- NOTE | 2022-08-08 08:11 | Hospitalist Progress Note ---
Date of Service August 08, 2022 Assessment & Plan (1) Closed fracture of neck of left femur: Plan: Patient presents to ED with complaints of left hip pain after sustaining a fall trying to avoid stepping on her dog and lost balance/tripped on stool and landed on left hip with inability to ambulate without severe pain X-ray of the left hip preliminary report shows femoral neck fracture without evidence of dislocation. Ortho consulted NPO this morning for surgery s/p Closed reduction percutaneous pinning Left Hip Fracture with Cannulated Screws (Left) - Dilip Baldwin MD. EBL 5cc Pain control/antiemetics prn, bowel regimen IVF while NPO and can d/c once eating Using her insulin pump but if elevated BSGs discussed may need to switch to basal/bolus. DM educator consulted Monitor labs on repeat/Vit D w/ AM labs PT/OT consulted -- to be WB as tolerated, possible need for rehab but will await evals DVT prophylaxis -- ASA 81mg once daily per orthopedics. Will dc heparin as she already got dose prior to surgery Weakness to b/l LE at present directly post-op. Got spinal anesthesia. Continued monitoring (2) Diabetes mellitus: Plan: last a1c in system 2019 at 9.1. Patient is on insulin pump and will continue such but if elevations will need to re-consult pharmacy and use basal/bolus. most recent BSG fingerstick 155 and will monitor A1c in AM/DM educator on consult Monitor BSGs (3) Hypothyroidism: Plan: Continue home dose of levothyroxine 100 mcg daily Check TSH level -- low . prior elevations in 2019 w/ myxedema. will check t4/t3 but rec repeating outpatient as well (4) Hypertension: Plan: Continue home dose of lisinopril 5 mg daily - hold post-op, bps lower normal Will monitor AM labs/BP and consider resuming in AM (5) HLD (hyperlipidemia): Plan: Continue statin therapy with simvastatin 20 mg daily Admission and Anticipated Discharge Date Admission Date: August 07, 2022 Supervising Physician Co-Signing Physician Notes The patient was not seen by me. The chart was reviewed. Case discussed with KWAME Wall. Agree with assessment and plan Subjective eval post-op, resting in bed. could eat something. will ask RN to call. using insulin pump, she does note her sugars have been in the 2-300s at times but will monitor on her pump for now but discussed possible need for SSI while inpatient if elevated. No CP/SOb. No abdominal pain, nausea. No issues w/ bowel movements at baseline. WB as tolerated and discussed will have PT/OT evals to see if she would benefit from any rehab. Questions/concerns addressed at this time. Physical Exam Physical Exam: General: WD female resting in bed post op, NAD HEENT: head normocephalic, atraumatic, mm slightly dry, trachea midline Resp: CTA, diminished in bases, no w/c/r, 100% on 2L CV: RRR, no significant m/r/g, no pitting edema/calf tenderness GI: +BS, soft/NT MSK/Neuro: dressing to LEFT hip c/d/i, no shadowing, slight edema, nontender, decreased sensation to b/l LE following surgery, inability for flexion/dorsiflexion bilaterally at the ankles, cap refill wnl Psych: tired, but alert/oriented to person/place/time Results & Data Results & Data Vital Signs (Past 12 Hours) Vital Signs Temp Pulse Pulse Pulse Pulse Resp BP 08/08/22 01:45 08/08/22 01:45 08/08/22 01:38 36.8 C 66 66 16 108/68 08/08/22 01:45 36.8 C 66 16 108/68 08/08/22 01:21 70 20 128/71 08/07/22 22:22 72 08/07/22 23:41 77 20 131/74 08/07/22 22:44 08/07/22 22:17 72 19 138/74 Pulse Ox O2 Del Method 08/08/22 01:45 Room Air 08/08/22 01:45 Room Air 08/08/22 01:38 95 Room Air 08/08/22 01:45 95 Room Air 08/08/22 01:21 98 Room Air 08/07/22 22:22 08/07/22 23:41 99 Room Air 08/07/22 22:44 88 L Room Air 08/07/22 22:17 97 Room Air Laboratory Results 08/08/22 08/08/22 08/08/22 Range/Units 09:05 07:10 07:10 WBC (4.8-10.8) K/ul RBC (4.20-5.40) M/uL Hgb (12.0-16.0) g/dl Hct (37.0-47.0) % MCV (80.0-100.0) fL MCH (25.0-34.0) pg MCHC (32.0-36.0) g/dL RDW Std Deviation (36.4-46.3) fL RDW Coeff of Dilshad (11.5-14.5) % Plt Count (130-400) K/uL MPV (9.4-12.4) fL Immature Gran % (Auto) % Neut % (Auto) % Lymph % (Auto) % [place] % (Auto) % Eos % (Auto) % Baso % (Auto) % Neut # (Auto) (1.40-6.50) K/uL Lymph # (Auto) (1.2-3.4) K/uL [place] # (Auto) (0.11-0.59) K/uL Eos # (Auto) (0-0.50) K/uL Baso # (Auto) (0-0.2) K/uL Immature Gran # (Auto) (0.01-0.20) K/uL PT (9.0-12.0) Seconds INR (0.9-1.1) APTT (21.0-31.0) Seconds PTT Ratio Sodium (136-145) mmol/L Potassium (3.5-5.1) mmol/L Chloride (98-107) mmol/L Carbon Dioxide (21-32) mmol/L Anion Gap (3-11) BUN (6-23) mg/dl Creatinine (0.6-1.2) mg/dl Est Cr Clr Drug Dosing ml/min Est GFR ( Amer) ml/min Est GFR (Non-Af Amer) ml/min BUN/Creatinine Ratio (10-20) Glucose (70-99(Fasting)) mg/dl POC Glucose 155 H (70-99) mg/dl Calcium (8.6-10.3) mg/dl Magnesium 1.8 (1.7-2.4) mg/dl Total Bilirubin (0.2-1.0) mg/dl AST (13-39) U/L ALT (7-52) U/L Alkaline Phosphatase (34-104) U/L Total Protein (6.0-8.3) gm/dl Albumin (3.4-5.0) gm/dl Globulin (2.5-4.0) gm/dl Albumin/Globulin Ratio (0.9-2) TSH (0.300-4.500) uIu/ml Free T4 (0.61-1.60) ng/dl Free T3 3.17 (2.3-4.2) pg/ml SARS-CoV-2, RNA, NAAT (NEGATIVE) 08/08/22 08/08/22 08/08/22 Range/Units 07:10 07:10 07:10 WBC (4.8-10.8) K/ul RBC (4.20-5.40) M/uL Hgb (12.0-16.0) g/dl Hct (37.0-47.0) % MCV (80.0-100.0) fL MCH (25.0-34.0) pg MCHC (32.0-36.0) g/dL RDW Std Deviation (36.4-46.3) fL RDW Coeff of Dilshad (11.5-14.5) % Plt Count (130-400) K/uL MPV (9.4-12.4) fL Immature Gran % (Auto) % Neut % (Auto) % Lymph % (Auto) % [place] % (Auto) % Eos % (Auto) % Baso % (Auto) % Neut # (Auto) (1.40-6.50) K/uL Lymph # (Auto) (1.2-3.4) K/uL [place] # (Auto) (0.11-0.59) K/uL Eos # (Auto) (0-0.50) K/uL Baso # (Auto) (0-0.2) K/uL Immature Gran # (Auto) (0.01-0.20) K/uL PT (9.0-12.0) Seconds INR (0.9-1.1) APTT (21.0-31.0) Seconds PTT Ratio Sodium 137 (136-145) mmol/L Potassium 4.6 (3.5-5.1) mmol/L Chloride 105 (98-107) mmol/L Carbon Dioxide 28 (21-32) mmol/L Anion Gap 4 (3-11) BUN 14 (6-23) mg/dl Creatinine 0.79 (0.6-1.2) mg/dl Est Cr Clr Drug Dosing 73.3 ml/min Est GFR ( Amer) 99.8 ml/min Est GFR (Non-Af Amer) 86.1 ml/min BUN/Creatinine Ratio 17.7 (10-20) Glucose 190 H (70-99(Fasting)) mg/dl POC Glucose (70-99) mg/dl Calcium 9.3 (8.6-10.3) mg/dl Magnesium (1.7-2.4) mg/dl Total Bilirubin (0.2-1.0) mg/dl AST (13-39) U/L ALT (7-52) U/L Alkaline Phosphatase (34-104) U/L Total Protein (6.0-8.3) gm/dl Albumin (3.4-5.0) gm/dl Globulin (2.5-4.0) gm/dl Albumin/Globulin Ratio (0.9-2) TSH 0.229 L (0.300-4.500) uIu/ml Free T4 1.37 (0.61-1.60) ng/dl Free T3 (2.3-4.2) pg/ml SARS-CoV-2, RNA, NAAT (NEGATIVE) 08/08/22 08/08/22 08/08/22 Range/Units 07:10 05:54 01:44 WBC 7.30 (4.8-10.8) K/ul RBC 3.47 L (4.20-5.40) M/uL Hgb 11.1 L (12.0-16.0) g/dl Hct 31.6 L (37.0-47.0) % MCV 91.1 (80.0-100.0) fL MCH 32.0 (25.0-34.0) pg MCHC 35.1 (32.0-36.0) g/dL RDW Std Deviation 41.6 (36.4-46.3) fL RDW Coeff of Dilshad 12.6 (11.5-14.5) % Plt Count 320 (130-400) K/uL MPV 9.4 (9.4-12.4) fL Immature Gran % (Auto) % Neut % (Auto) % Lymph % (Auto) % [place] % (Auto) % Eos % (Auto) % Baso % (Auto) % Neut # (Auto) (1.40-6.50) K/uL Lymph # (Auto) (1.2-3.4) K/uL [place] # (Auto) (0.11-0.59) K/uL Eos # (Auto) (0-0.50) K/uL Baso # (Auto) (0-0.2) K/uL Immature Gran # (Auto) (0.01-0.20) K/uL PT (9.0-12.0) Seconds INR (0.9-1.1) APTT (21.0-31.0) Seconds PTT Ratio Sodium (136-145) mmol/L Potassium (3.5-5.1) mmol/L Chloride (98-107) mmol/L Carbon Dioxide (21-32) mmol/L Anion Gap (3-11) BUN (6-23) mg/dl Creatinine (0.6-1.2) mg/dl Est Cr Clr Drug Dosing ml/min Est GFR ( Amer) ml/min Est GFR (Non-Af Amer) ml/min BUN/Creatinine Ratio (10-20) Glucose (70-99(Fasting)) mg/dl POC Glucose 226 H 199 H (70-99) mg/dl Calcium (8.6-10.3) mg/dl Magnesium (1.7-2.4) mg/dl Total Bilirubin (0.2-1.0) mg/dl AST (13-39) U/L ALT (7-52) U/L Alkaline Phosphatase (34-104) U/L Total Protein (6.0-8.3) gm/dl Albumin (3.4-5.0) gm/dl Globulin (2.5-4.0) gm/dl Albumin/Globulin Ratio (0.9-2) TSH (0.300-4.500) uIu/ml Free T4 (0.61-1.60) ng/dl Free T3 (2.3-4.2) pg/ml SARS-CoV-2, RNA, NAAT (NEGATIVE) 08/07/22 08/07/22 08/07/22 Range/Units 21:40 21:38 21:38 WBC (4.8-10.8) K/ul RBC (4.20-5.40) M/uL Hgb (12.0-16.0) g/dl Hct (37.0-47.0) % MCV (80.0-100.0) fL MCH (25.0-34.0) pg MCHC (32.0-36.0) g/dL RDW Std Deviation (36.4-46.3) fL RDW Coeff of Dilshad (11.5-14.5) % Plt Count (130-400) K/uL MPV (9.4-12.4) fL Immature Gran % (Auto) % Neut % (Auto) % Lymph % (Auto) % [place] % (Auto) % Eos % (Auto) % Baso % (Auto) % Neut # (Auto) (1.40-6.50) K/uL Lymph # (Auto) (1.2-3.4) K/uL [place] # (Auto) (0.11-0.59) K/uL Eos # (Auto) (0-0.50) K/uL Baso # (Auto) (0-0.2) K/uL Immature Gran # (Auto) (0.01-0.20) K/uL PT 10.2 (9.0-12.0) Seconds INR 0.9 (0.9-1.1) APTT 24.6 (21.0-31.0) Seconds PTT Ratio 0.9 Sodium 136 (136-145) mmol/L Potassium 4.3 (3.5-5.1) mmol/L Chloride 106 (98-107) mmol/L Carbon Dioxide 26 (21-32) mmol/L Anion Gap 4 (3-11) BUN 13 (6-23) mg/dl Creatinine 0.92 (0.6-1.2) mg/dl Est Cr Clr Drug Dosing 62.6 ml/min Est GFR ( Amer) 83.0 ml/min Est GFR (Non-Af Amer) 71.6 ml/min BUN/Creatinine Ratio 14.1 (10-20) Glucose 159 H (70-99(Fasting)) mg/dl POC Glucose (70-99) mg/dl Calcium 9.2 (8.6-10.3) mg/dl Magnesium (1.7-2.4) mg/dl Total Bilirubin 0.3 (0.2-1.0) mg/dl AST 19 (13-39) U/L ALT 21 (7-52) U/L Alkaline Phosphatase 110 H (34-104) U/L Total Protein 6.0 (6.0-8.3) gm/dl Albumin 3.5 (3.4-5.0) gm/dl Globulin 2.5 (2.5-4.0) gm/dl Albumin/Globulin Ratio 1.4 (0.9-2) TSH (0.300-4.500) uIu/ml Free T4 (0.61-1.60) ng/dl Free T3 (2.3-4.2) pg/ml SARS-CoV-2, RNA, NAAT NEGATIVE (NEGATIVE) 08/07/22 Range/Units 21:38 WBC 12.52 H (4.8-10.8) K/ul RBC 3.33 L (4.20-5.40) M/uL Hgb 10.7 L (12.0-16.0) g/dl Hct 30.7 L (37.0-47.0) % MCV 92.2 (80.0-100.0) fL MCH 32.1 (25.0-34.0) pg MCHC 34.9 (32.0-36.0) g/dL RDW Std Deviation 43.1 (36.4-46.3) fL RDW Coeff of Dilshad 12.9 (11.5-14.5) % Plt Count 317 (130-400) K/uL MPV 9.1 L (9.4-12.4) fL Immature Gran % (Auto) 0.2 % Neut % (Auto) 69.4 % Lymph % (Auto) 19.9 % [place] % (Auto) 6.7 % Eos % (Auto) 3.4 % Baso % (Auto) 0.4 % Neut # (Auto) 8.70 H (1.40-6.50) K/uL Lymph # (Auto) 2.49 (1.2-3.4) K/uL [place] # (Auto) 0.84 H (0.11-0.59) K/uL Eos # (Auto) 0.42 (0-0.50) K/uL Baso # (Auto) 0.05 (0-0.2) K/uL Immature Gran # (Auto) 0.02 (0.01-0.20) K/uL PT (9.0-12.0) Seconds INR (0.9-1.1) APTT (21.0-31.0) Seconds PTT Ratio Sodium (136-145) mmol/L Potassium (3.5-5.1) mmol/L Chloride (98-107) mmol/L Carbon Dioxide (21-32) mmol/L Anion Gap (3-11) BUN (6-23) mg/dl Creatinine (0.6-1.2) mg/dl Est Cr Clr Drug Dosing ml/min Est GFR ( Amer) ml/min Est GFR (Non-Af Amer) ml/min BUN/Creatinine Ratio (10-20) Glucose (70-99(Fasting)) mg/dl POC Glucose (70-99) mg/dl Calcium (8.6-10.3) mg/dl Magnesium (1.7-2.4) mg/dl Total Bilirubin (0.2-1.0) mg/dl AST (13-39) U/L ALT (7-52) U/L Alkaline Phosphatase (34-104) U/L Total Protein (6.0-8.3) gm/dl Albumin (3.4-5.0) gm/dl Globulin (2.5-4.0) gm/dl Albumin/Globulin Ratio (0.9-2) TSH (0.300-4.500) uIu/ml Free T4 (0.61-1.60) ng/dl Free T3 (2.3-4.2) pg/ml SARS-CoV-2, RNA, NAAT (NEGATIVE) Diagnostic Findings Hip/Pelvis X-Ray 08/07/22 19:37 XR hip LT 2V w pelvis CLINICAL HISTORY: s/p fall. Left hip pain. COMPARISON STUDY: None. FINDINGS: There is impacted left femoral neck fracture. No dislocation. The visualized pelvic bones are intact. Soft tissues are unremarkable. IMPRESSION: Impacted left femoral neck fracture. ACT 112: Negative or not required by law. Electronically signed by: Sanjiv Solano M.D. 08/08/2022 7:45 AM Chest X-Ray 08/07/22 21:00 XR chest 1V portable HISTORY: Pre-op COMPARISON: Chest 11/23/2018. FINDINGS: The lungs are clear. Cardiac silhouette is normal in size. No pleural effusions. No pneumothorax. IMPRESSION: No acute process. ACT 112: Negative or not required by law. Electronically signed by: Sanjvi Solano M.D. 08/08/2022 7:56 AM PG Care Time/CCT Total # of Minutes Spent Total Time Spent with Patient: Total time spent is greater than 50% in coordination of care (as documented) at patient's floor/unit and/or counseling patient: Coding Level of Care Code 24434 SUB INP/OBS CARE 2/35MIN Diagnoses Closed fracture of neck of left femur S72.002A Encounter type: initial encounter Diabetes mellitus E11.9 Diabetes mellitus type: type 1 Hypothyroidism E03.9 Hypertension I10 HLD (hyperlipidemia) E78.5 (1) Closed fracture of neck of left femur Encounter type: initial encounter Qualified Code(s): S72.002A - Fracture of unspecified part of neck of left femur, initial encounter for closed fracture (2) Diabetes mellitus Diabetes mellitus type: type 1
[2022-08-08] MEDS ORDERED: ceFAZolin 2000MG 2,000 MG/15 ML SYR IV ONE ×2 (08:19→16:00)
[2022-08-08] MEDS ORDERED: PHENYLEPHRINE 100MCG/ML 5ML SYR ONE (08:37)
[2022-08-08] MEDS ORDERED: ONDANSETRON INJ 2 MG/ML 2 ML VIAL ONE (08:37)
[2022-08-08] MEDS ORDERED: PROPOFOL IV EMULSION 10 MG/ML 20 ML VIAL IV ONE (08:37)
[2022-08-08] MEDS ORDERED: LIDOCAINE 2% 2 ML VIAL/AMP(20MG/ML) INFIL ONE (08:37)
--- NOTE | 2022-08-08 09:08 | Operative Report ---
Post Operative Report Pre & Post Diagnosis Operation Date: 08/08/22 07:30 Pre-Op Diagnosis: Left hip valgus impacted femoral neck fracture Post-Op Diagnosis: Left hip valgus impacted femoral neck fracture I identified the patient and participated in the time-out.: Yes Procedure Operation Date: 08/08/22 07:30 Actual Procedures Closed reduction percutaneous pinning Left Hip Fracture with Cannulated Screws (Left) - Dilip Baldwin MD Surgeon Dilip Baldwin MD Apprentice Stylist Osmin Hernandez PA-C. No resident or fellow was available to assist. Estimated Blood Loss 5 Findings Consistent with Post-Op Diagnosis Specimens None Anesthesia Type Spinal MAC Complications none Disposition Disposition: Recovery Room Indications 52-year-old female, tripped over her dog yesterday and fell onto her left hip. Presented the emergency room where x-rays showed a valgus impacted left femoral neck fracture. Orthopedics was consulted. I had a long discussion with the patient about the diagnosis, risks and benefits of surgery, alternatives to surgery, and expected outcomes. She understands that she is at elevated risk for complications including infection, wound healing problems, nonunion, and failure of the hardware given her type 1 diabetes. After reviewing all these she elected proceed with surgery. All questions were answered. Informed consent was signed. Description of Procedure Patient identified in the preoperative holding area where her surgical site was marked. She is brought back to the main operating room where she was given a spinal anesthetic on the hospital bed. She was then carefully moved on the fracture table. The operative foot was well-padded and placed into the traction boot. The nonoperative leg was flexed and AB ducted through the hip to fa cilitate fluoroscopic imaging. Fluoroscopic imaging was then brought in. We confirmed that the fracture had not displaced compared with her x-rays done yesterday. The hip was then prepped and draped in the usual sterile fashion. Prior to incision a multidisciplinary timeout was called. All in the room were in agreement. We began by marking out on the skin and the appropriate trajectory for the cannulated screws. A 3 cm incision was then made over the lateral aspect of the femur. I dissected down through subcutaneous tissues to the level of fascia. A guidewire was then placed onto the lateral cortex of the femur for the superior screw. This was drilled up into the femoral head along the superior aspect of the femoral neck in the center position on the lateral fluoroscopic imaging. Next, 2 inferior screws were placed, 1 anteriorly, and one posteriorly. These were also under fluoroscopic guidance giving us a triangle formation for our screws. Once her guidewires were in appropriate position we then took our measurements. Synthes 7.3 mm cannulated screws with short threads were then placed. The superior screw measured 80 mm. The inferior posterior screw measured 85 mm. The inferior anterior screw measured 90 mm. Excellent bite with obtained with all the screws. The C-arm fluoroscopy unit was then brought between the 0 and 90 position stopping every 10 degrees to ensure that the screws did not protrude through the subchondral bone and into the hip joint which was confirmed. Guidewires were removed. Our final AP and lateral fluoroscopic images were then saved to the system. The wound was then irrigated out with copious amounts of normal saline. Deep dermal layer was closed with a running 2-0 Vicryl suture. Skin was closed with sarwat. Sterile dressing was applied. Patient was then awoke from anesthesia and transferred recovery room in stable condition. Postoperative course: Patient will be readmitted to the internal medicine service from the recovery room. She will be weightbearing as tolerated using a walker for safety. Recommend aspirin 81 mg once a day for DVT prophylaxis. Also recommend tight glucose control to decrease risk of surgical site infection after surgery. I attest to the content of the Intraoperative Record and any orders documented therein. Any exceptions are noted below.
--- NOTE | 2022-08-08 09:21 | Operative Report ---
Post Operative Report Pre & Post Diagnosis Operation Date: 08/08/22 07:30 Pre-Op Diagnosis: Left hip fracture Post-Op Diagnosis: Left hip fracture I identified the patient and participated in the time-out.: Yes Procedure Operation Date: 08/08/22 07:30 Actual Procedures p Open Reduction and Internal Fixation Left Hip Fracture with Cannulated Screw(Left) - Dilip Baldwin MD Surgeon ROBSON Baldwin MD [employer] Osmin Hernandez PA-C. No resident or fellow was available to assist. Estimated Blood Loss 5 Findings Consistent with Post-Op Diagnosis See operative report Specimens none Drains none Complications none Disposition Accompanied Patient To Recovery: Yes Indications This 52-year-old female presented through the ED after tripping over her dog. She sustained a left hip fracture. She elected to proceed with surgical invention after being educated about potential risks and outcomes. Preoperative imaging was obtained. Description of Procedure The patient was administered a spinal anesthetic and then taken to the operating room where she was given sedation. She was prepped and draped in the usual sterile fashion. Please see Dr. Baldwin's operative report for specifics of the procedure. I was present for the entire case from initial patient positioning through final wound closure. Assistance was provided in patient positioning, tissue retraction, hemostasis, hardware placement, and final wound closure. Patient was taken to the recovery room in ICU, in satisfactory condition. I attest to the content of the Intraoperative Record and any orders documented therein. Any exceptions are noted below.
[2022-08-08] MEDS ORDERED: INSULIN ASPART 100 UNITS/ML VIAL SC PRN (11:00)
[2022-08-08] MEDS ORDERED: INSULIN ASPART PER UNIT CHARGE SC SCH (12:49)
[2022-08-08] MEDS: INSULIN, Rapid-Acting PUMP SCH ×3 (12:54→22:34)
--- NOTE | 2022-08-08 14:33 | Fluoroscopy Report ---
FL hip LT 2-3V CLINICAL HISTORY: LEFT HIP CANNULATED SCREWS COMPARISON STUDY: None. FLUOROSCOPY TIME: 1 minute and 35 seconds FLUOROSCOPY IMAGES: 2 Ka,r: 17.1 mGy FINDINGS: Status post internal fixation of the left femoral neck fracture with 3 cannulated screws. T he hardware appears intact. Alignment appears near-anatomic. IMPRESSION: Fluoroscopic assistance as above. ACT 112: Negative or not required by law. Electronically signed by: Sanjiv Solano M.D. 08/08/2022 2:32 PM
[2022-08-08] MEDS: SODIUM CHLORIDE 0.9% 1000ML 1,000 ML IV SCH ×2 (15:07→22:38)
--- NOTE | 2022-08-08 17:37 | Anesthesiology Progress Note ---
Date of Service August 08, 2022 Anesthesia Post Procedure Vital Signs Vital Signs: Temp Pulse Pulse Pulse Pulse Resp BP 08/08/22 14:20 37.2 C 76 16 08/08/22 12:44 36.9 C 77 16 08/08/22 11:40 36.7 C 74 16 08/08/22 11:05 36.8 C 71 14 08/08/22 10:30 36.6 C 74 16 08/08/22 10:10 71 12 08/08/22 10:00 36.6 C 71 14 08/08/22 09:50 70 13 08/08/22 09:40 36.5 C 71 13 08/08/22 09:30 72 13 08/08/22 09:20 70 12 08/08/22 09:10 69 13 08/08/22 09:00 36.1 C L 69 12 08/08/22 01:45 08/08/22 01:45 08/08/22 01:38 36.8 C 66 66 16 08/08/22 01:45 36.8 C 66 16 08/08/22 01:21 70 20 08/07/22 22:22 72 08/07/22 23:41 77 20 08/07/22 22:44 08/07/22 22:17 72 19 08/07/22 19:14 36.6 C 76 19 105/63 BP Pulse Ox O2 Del Method O2 Flow Rate 08/08/22 14:20 107/70 98 Room Air 08/08/22 12:44 109/71 96 Room Air 08/08/22 11:40 101/66 92 Room Air 08/08/22 11:05 104/68 100 Nasal Cannula 2 08/08/22 10:30 103/66 100 Nasal Cannula 2 08/08/22 10:10 107/68 100 Nasal Cannula 2 08/08/22 10:00 113/64 100 Nasal Cannula 2 08/08/22 09:50 105/66 99 Nasal Cannula 2 08/08/22 09:40 107/69 99 Nasal Cannula 2 08/08/22 09:30 104/59 L 95 Room Air 08/08/22 09:20 106/74 98 Oxymask 2 08/08/22 09:10 122/60 100 Oxymask 6 08/08/22 09:00 98/56 L 100 Oxymask 6 08/08/22 01:45 Room Air 08/08/22 01:45 Room Air 08/08/22 01:38 108/68 95 Room Air 08/08/22 01:45 108/68 95 Room Air 08/08/22 01:21 128/71 98 Room Air 08/07/22 22:22 08/07/22 23:41 131/74 99 Room Air 08/07/22 22:44 88 L Room Air 08/07/22 22:17 138/74 97 Room Air 08/07/22 19:14 97 Room Air Pain Intensity Left Hip: Pain Intensity: 7 Transfer of Care Handoff Completed per policy Notes Mental Status: alert / awake / arousable and participated in evaluation Nausea / Vomiting: adequately controlled Pain: adequately controlled Airway Patency, RR, SpO2: stable & adequate BP & HR: stable & adequate Hydration State: stable & adequate Neuraxial Anesthesia: was administered Anesthetic Complications: no major complications apparent and Pt Satisfied with anesthetic care
[2022-08-08] MEDS: SIMVASTATIN 20 MG TAB PO SCH (20:24)
[2022-08-08] MEDS: LEVOTHYROXINE SODIUM 100 MCG TABLET PO SCH (20:24)
[2022-08-08] MEDS: LORATADINE 10 MG TAB PO SCH (20:24)
[2022-08-09] MEDS: HYDROmorphone INJ 0.5 MG/0.5 ML SYR IV PRN ×2 (02:30→07:58)
[2022-08-09] MEDS: ACETAMINOPHEN 500 MG TAB PO SCH ×3 (05:49→21:44)
[2022-08-09] MEDS ORDERED: PHARMACY GLYCEMIC MGMT CONSULT PRN (07:57)
--- NOTE | 2022-08-09 07:58 | Hospitalist Progress Note ---
Date of Service August 09, 2022 Assessment & Plan (1) Closed fracture of neck of left femur: Plan: Patient presents to ED with complaints of left hip pain after sustaining a fall trying to avoid stepping on her dog and lost balance/tripped on stool and landed on left hip with inability to ambulate without severe pain Xray w/ femoral neck fracture Ortho consulted POD # 1 s/p Closed reduction percutaneous pinning Left Hip Fracture with Cannulated Screws (Left) - Dilip Baldwin MD. EBL 5cc WBC wnl, hgb 11.1--> 10.9, acute blood loss from surgery/dilutional from IVF IVF to be discontinued as keeping up w/ PO intake Pain control/antiemetics prn. Added PO pain medication as only had IV dilaudid ordered Bowel regimen -- added scheduled docusate/senna. miralax available prn PT/OT consulted -- likely will need rehab as multiple steps at home. CM to follow DVT proph: ASA 81mg BID Monitor BMP/mag in am Elevated BSGs overnight -- see below, improving (2) Diabetes mellitus: Plan: last a1c in system 2019 at 9.1 --> repeat 9.5 Poor control at home reporting BSGs to 200-300s, fear of lows at night and waiting for new device outpatient Had been on her own pump as BSGs 155 yesterday post-op but elevated to 300s overnight and her insulin pump dc this am/pharmacy consulted Given 8u glargine, basal/bolus initiated Most recent BSG 246 and will monitor Appreciate glycemic management DM educator on consult for tomorrow (3) Hypothyroidism: Plan: Continue home dose of levothyroxine 100 mcg daily Check TSH level -- low . prior elevations in 2019 w/ myxedema. T3/T4 wnl and would rec repeating levels outpatient could consider decreasing her Synthroid and repeating TFT in 4-6 weeks, but defer to pcp in fu (4) Hypertension: Plan: BP stable 121/76 Kidney function stable post op and will resume lisinopril for this evening Monitor (5) HLD (hyperlipidemia): Plan: Continue statin therapy with simvastatin 20 mg daily Plan continued inpatient stay likely needing rehab at d/c -- will alert CM for referrals Admission and Anticipated Discharge Date Admission Date: August 07, 2022 Supervising Physician Co-Signing Physician Notes The patient was not seen by me. The chart was reviewed. Case discussed with KWAME Wall. Agree with assessment and plan Subjective eval this morning, doing well. pain controlled. eating/drinking, passing gas and moving bowels but no BM reported. BSGs elevated and discussed basal/bolus. Her BSGs elevated at home but worried about bottoming out at night. DM educator to see in AM, not sure if her pump has IQ feature or not. Ambulated ok, ordered PO pain meds. Will be planning for rehab given 20 steps at home. Questions/concerns addressed at this time Physical Exam Physical Exam: General: WD female resting in bed, NAD HEENT: hair dyed, head normocephalic, atraumatic, mm slightly dry Resp: CTA, no w/c/r, on room air CV: RRR, no significant m/r/g, no pitting edema/calf tenderness, pulses palpable GI: +BS, soft/NT : no marie MSK/Neuro: dressing to LEFT hip c/d/i, ice pack in place, mild tenderness, no erythema/drainage strength returned to b/l LE and equal bilaterally 4/5 at the ankle (3/5 bilaterally with hip flexion), sensation intact, pulses palpable Psych: AOx3 Results & Data Results & Data Vital Signs (Past 12 Hours) Vital Signs Temp Pulse Resp BP Pulse Ox O2 Del Method 08/09/22 07:24 37.2 C 80 18 121/76 93 Room Air 08/09/22 02:29 37.1 C 72 16 127/79 94 Room Air 08/08/22 20:25 Room Air 08/08/22 22:53 37.0 C 71 16 121/76 94 Room Air Laboratory Results 08/09/22 08/09/22 08/09/22 Range/Units 09:45 09:45 09:45 WBC (4.8-10.8) K/ul RBC (4.20-5.40) M/uL Hgb (12.0-16.0) g/dl Hct (37.0-47.0) % MCV (80.0-100.0) fL MCH (25.0-34.0) pg MCHC (32.0-36.0) g/dL RDW Std Deviation (36.4-46.3) fL RDW Coeff of Dilshad (11.5-14.5) % Plt Count (130-400) K/uL MPV (9.4-12.4) fL Sodium 136 (136-145) mmol/L Potassium 4.3 (3.5-5.1) mmol/L Chloride 103 (98-107) mmol/L Carbon Dioxide 30 (21-32) mmol/L Anion Gap 3 (3-11) BUN 16 (6-23) mg/dl Creatinine 0.86 (0.6-1.2) mg/dl Est Cr Clr Drug Dosing 67.3 ml/min Est GFR ( Amer) 90.0 ml/min Est GFR (Non-Af Amer) 77.7 ml/min BUN/Creatinine Ratio 18.6 (10-20) Glucose 222 H (70-99(Fasting)) mg/dl POC Glucose (70-99) mg/dl Estimat Average Glucose 226 mg/dl Hemoglobin A1c 9.5 H (4.5-5.6) % Calcium 9.4 (8.6-10.3) mg/dl 25-OH Vitamin D Total 41.0 (30-100) ng/ml 08/09/22 08/09/22 08/08/22 Range/Units 09:45 07:56 22:28 WBC 7.62 (4.8-10.8) K/ul RBC 3.40 L (4.20-5.40) M/uL Hgb 10.9 L (12.0-16.0) g/dl Hct 31.6 L (37.0-47.0) % MCV 92.9 (80.0-100.0) fL MCH 32.1 (25.0-34.0) pg MCHC 34.5 (32.0-36.0) g/dL RDW Std Deviation 43.3 (36.4-46.3) fL RDW Coeff of Dilshad 12.6 (11.5-14.5) % Plt Count 300 (130-400) K/uL MPV 9.4 (9.4-12.4) fL Sodium (136-145) mmol/L Potassium (3.5-5.1) mmol/L Chloride (98-107) mmol/L Carbon Dioxide (21-32) mmol/L Anion Gap (3-11) BUN (6-23) mg/dl Creatinine (0.6-1.2) mg/dl Est Cr Clr Drug Dosing ml/min Est GFR ( Amer) ml/min Est GFR (Non-Af Amer) ml/min BUN/Creatinine Ratio (10-20) Glucose 225 H (70-99(Fasting)) mg/dl POC Glucose 246 H (70-99) mg/dl Estimat Average Glucose mg/dl Hemoglobin A1c (4.5-5.6) % Calcium (8.6-10.3) mg/dl 25-OH Vitamin D Total (30-100) ng/ml 08/08/22 08/08/22 08/08/22 Range/Units 20:57 20:56 16:55 WBC (4.8-10.8) K/ul RBC (4.20-5.40) M/uL Hgb (12.0-16.0) g/dl Hct (37.0-47.0) % MCV (80.0-100.0) fL MCH (25.0-34.0) pg MCHC (32.0-36.0) g/dL RDW Std Deviation (36.4-46.3) fL RDW Coeff of Dilshad (11.5-14.5) % Plt Count (130-400) K/uL MPV (9.4-12.4) fL Sodium (136-145) mmol/L Potassium (3.5-5.1) mmol/L Chloride (98-107) mmol/L Carbon Dioxide (21-32) mmol/L Anion Gap (3-11) BUN (6-23) mg/dl Creatinine (0.6-1.2) mg/dl Est Cr Clr Drug Dosing ml/min Est GFR ( Amer) ml/min Est GFR (Non-Af Amer) ml/min BUN/Creatinine Ratio (10-20) Glucose (70-99(Fasting)) mg/dl POC Glucose 323 H* 328 H* 267 H (70-99) mg/dl Estimat Average Glucose mg/dl Hemoglobin A1c (4.5-5.6) % Calcium (8.6-10.3) mg/dl 25-OH Vitamin D Total (30-100) ng/ml 08/08/22 Range/Units 12:06 WBC (4.8-10.8) K/ul RBC (4.20-5.40) M/uL Hgb (12.0-16.0) g/dl Hct (37.0-47.0) % MCV (80.0-100.0) fL MCH (25.0-34.0) pg MCHC (32.0-36.0) g/dL RDW Std Deviation (36.4-46.3) fL RDW Coeff of Dilshad (11.5-14.5) % Plt Count (130-400) K/uL MPV (9.4-12.4) fL Sodium (136-145) mmol/L Potassium (3.5-5.1) mmol/L Chloride (98-107) mmol/L Carbon Dioxide (21-32) mmol/L Anion Gap (3-11) BUN (6-23) mg/dl Creatinine (0.6-1.2) mg/dl Est Cr Clr Drug Dosing ml/min Est GFR ( Amer) ml/min Est GFR (Non-Af Amer) ml/min BUN/Creatinine Ratio (10-20) Glucose (70-99(Fasting)) mg/dl POC Glucose 86 (70-99) mg/dl Estimat Average Glucose mg/dl Hemoglobin A1c (4.5-5.6) % Calcium (8.6-10.3) mg/dl 25-OH Vitamin D Total (30-100) ng/ml PG Care Time/CCT Total # of Minutes Spent Total Time Spent with Patient: Total time spent is greater than 50% in coordination of care (as documented) at patient's floor/unit and/or counseling patient: Coding Level of Care Code 80889 SUB INP/OBS CARE 3/50MIN Diagnoses Closed fracture of neck of left femur S72.002A Encounter type: initial encounter Diabetes mellitus E11.9 Diabetes mellitus type: type 1 Hypothyroidism E03.9 Hypertension I10 HLD (hyperlipidemia) E78.5 (1) Closed fracture of neck of left femur Encounter type: initial encounter Qualified Code(s): S72.002A - Fracture of unspecified part of neck of left femur, initial encounter for closed fracture (2) Diabetes mellitus Diabetes mellitus type: type 1
[2022-08-09] MEDS: SODIUM CHLORIDE 0.9% 1000ML 1,000 ML IV SCH (08:08)
[2022-08-09] MEDS ORDERED: LANTUS PER UNIT CHARGE SC SCH (09:30)
[2022-08-09 10:05] LABS: Hematocrit (blood only) 31.6 % (37.0-47.0); Hemoglobin 10.9 g/dl (12.0-16.0); Mean Corpuscular Hemoglobin 32.1 pg (25.0-34.0); Mean Corpuscular Hgb Conc 34.5 g/dL (32.0-36.0); Mean Corpuscular Volume 92.9 fL (80.0-100.0); Mean Platelet Volume 9.4 fL (9.4-12.4); Platelet Count 300 K/uL (130-400); RDW Coefficient of Variation 12.6 % (11.5-14.5); RDW Standard Deviation 43.3 fL (36.4-46.3); White Blood Count 7.62 K/ul (4.8-10.8)
[2022-08-09 10:08] LABS: Estimated Average Glucose 226 mg/dl; Hemoglobin A1C 9.5 % (4.5-5.6)
[2022-08-09] MEDS: ASPIRIN 81 MG ECTAB PO SCH (10:16)
[2022-08-09 10:23] LABS: BUN Creatinine Ratio 18.6 (10-20); Calcium 9.4 mg/dl (8.6-10.3); Creatinine Clr Calc Pharmacy 67.3 ml/min; Est GFR (Non-African American) 77.7 ml/min; Potassium 4.3 mmol/L (3.5-5.1)
[2022-08-09] MEDS: INSULIN, Rapid-Acting PUMP SCH (11:09)
[2022-08-09] MEDS: DOCUSATE SODIUM/SENNA 50/8.6MG TAB PO SCH (13:08)
[2022-08-09] MEDS: INSULIN ASPART PER UNIT CHARGE SC SCH ×3 (13:09→21:31)
--- NOTE | 2022-08-09 13:49 | Pharmacy Report ---
Pharmacy Glycemic Short Note 2 - Date of Service August 09, 2022 - Glycemic Short BSG Results (Last 24 hours): 08/08/22 08/08/22 08/08/22 16:55 20:56 20:57 Glucose POC Glucose 267 H 328 H* 323 H* 08/08/22 08/09/22 08/09/22 22:28 07:56 09:45 Glucose 225 H 222 H POC Glucose 246 H 08/09/22 08/09/22 12:03 12:05 Glucose POC Glucose 300 H 283 H OUTPATIENT ANTIDIABETIC REGIMEN: * Novolog insulin pump * HbA1c: 9.5% (08/09/22) ASSESSMENT: * Ms Young is a 52yo diabetic F who manages her DM with an insulin pump as an outpt. Pt is unsure of her exact pump settings, but in past admission, pt used very low doses of insulin. * Pt has been hyperglycemic, so pump was discontinued today and pt was transitioned to SQ basal/bolus insulin. * Due to pt's insulin sensitivity, SQ insulin initiated conservatively. Will titrate as needed. * Of note, patient seems to have received more insulin at lunchtime today than was indicated. Will ask that nursing monitor patient for s/s of hypoglycemia for the next several hours. PLAN FOR INPATIENT GLYCEMIC CONTROL: * Hold insulin pump (has been disconnected by patient) * Basal insulin * Lantus 8 units SQ x1 dose this morning * Lantus 0-5 units SQ this evening, based on BSG * Bolus insulin * NovoLog per scale ACHS or Q6hrs while NPO * Goal Range: Low 120 mg/dL - High 150 mg/dL * Correction Factor: 50 mg/dL/unit * Nutritional / Prandial insulin per carb ratio of 1 unit per 20 grams CHO consumed
[2022-08-09] MEDS: oxyCODONE HCL IR 5 MG TAB (IMMEDIATE RELEASE) PO PRN (18:18)
[2022-08-09] MEDS: lisinopril 5 MG TAB PO SCH (20:25)
[2022-08-09] MEDS: SIMVASTATIN 20 MG TAB PO SCH (20:28)
[2022-08-09] MEDS: LORATADINE 10 MG TAB PO SCH (20:28)
--- NOTE | 2022-08-09 20:36 | Orthopedic Progress Note ---
Date of Service August 09, 2022 Assessment & Plan (1) S/P ORIF (open reduction internal fixation) fracture: Plan: The patient was educated regarding today's findings. Conservative care measures were discussed. Her dressings are dry. They do not require changing. Continue with pain medication per the hospitalist service. She is done with her antibiotics at this point. Continue with ambulation using her walker. Anticipate discharge to her half-way or rehab due to the 20 steps she has to enter her apartment. Continue DVT prophylaxis using aspirin 81 mg daily and her compression stockings. Admission and Anticipated Discharge Date Admission Date: August 07, 2022 Subjective This 52-year-old female seen today in her room. She has already finished her dinner. She is back in bed. She states she has been out of bed several times today and has walked the halls. She has participated in therapy. She denies any significant pain. Her nurse also states that the patient has been doing very well. Patient denies any numbness or tingling. No additional complaints. Physical Exam Physical Exam: General: Well-developed, well-nourished, middle-aged female, in no acute distress. Laying in bed at this point. Alert and oriented. Skin: Warm and dry with good turgor. No rashes. Postsurgical dressings are dry and intact on the left hip. No significant ecchymosis or edema yet. No erythema. Musculoskeletal: The patient is good internal and external rotation of the hip without discomfort. This is both passive and active. She has intact passive flexion and extension of the left hip also without discomfort. No pain with palpation over the femur at this time. Intact motor function of the ankle and toes. Neurologic: Gross sensation is intact across the left leg by soft touch. Peripheral pulses are 2+. Results & Data Vital Signs (Past 12 Hours) Vital Signs Temp Pulse Resp BP Pulse Ox O2 Del Method 08/09/22 15:51 36.9 C 79 18 123/73 93 Room Air Laboratory Results CBC obtained this morning shows a white count of 7.62. H&H of 10.9 and 31.6. Platelets 300,000. PRP shows unremarkable electrolytes and renal function. Glucose is elevated at 222. Hemoglobin A1c is elevated at 9.5. Vitamin D total was normal at 41.0.
[2022-08-09] MEDS: LANTUS PER UNIT CHARGE SC SCH (21:32)
[2022-08-10] MEDS ORDERED: INSULIN ASPART PER UNIT CHARGE SC SCH (02:00)
[2022-08-10] MEDS: ACETAMINOPHEN 500 MG TAB PO SCH ×3 (05:25→21:20)
[2022-08-10] MEDS: DOCUSATE SODIUM/SENNA 50/8.6MG TAB PO SCH (08:14)
[2022-08-10] MEDS: ASPIRIN 81 MG ECTAB PO SCH (08:14)
[2022-08-10] MEDS: LANTUS PER UNIT CHARGE SC SCH ×2 (08:16→22:14)
[2022-08-10] MEDS: INSULIN ASPART PER UNIT CHARGE SC SCH ×4 (08:16→22:13)
[2022-08-10 08:44] LABS: BUN Creatinine Ratio 23.4 (10-20); Calcium 9.6 mg/dl (8.6-10.3); Creatinine Clr Calc Pharmacy 75.2 ml/min; Est GFR (African American) 102.9 ml/min; Est GFR (Non-African American) 88.8 ml/min; Magnesium 1.7 mg/dl (1.7-2.4); Potassium 4.4 mmol/L (3.5-5.1)
--- NOTE | 2022-08-10 10:36 | Orthopedic Progress Note ---
Date of Service August 10, 2022 Assessment & Plan (1) S/P ORIF (open reduction internal fixation) fracture: Plan: The patient was educated regarding today's findings. Conservative care measures were discussed. Her dressing looked great today, in tact with no drainage. Will change tomorrow or prior to discharge. Continue with pain medication per the hospitalist service. She is done with her antibiotics at this point. Continue with ambulation using her walker. PT/OT. Anticipate discharge to her retirement or rehab due to the 20 steps she has to enter her apartment. Continue DVT prophylaxis using aspirin 81 mg daily and her compression stockings. Follow up in he office in 10-14 days from surgery. Admission and Anticipated Discharge Date Admission Date: August 07, 2022 Subjective Patient was seen and examined at bedside. She says that she is doing very well. She has no pain currently. She has been working with physical therapy and or chills. Physical Exam Physical Exam: General: Pt laying in hospital bed AA&O, in NAD, calm and cooperative during exam Lower Extremity: Dressing looks great, in tact and not saturated. Pt has full ROM of ankle and all 5 digits. Pt has 5/5 strength with resisted DF/PF. SLR in tact. Calf supple and non tender. NVI with sensation to light touch distally and good distal pulses present. She is able to bend her knee to 90 and slightly flex her hip. She tolerated passive abduction and adduction to neutral. Results & Data Vital Signs (Past 12 Hours) Vital Signs Temp Pulse Resp BP Pulse Ox O2 Del Method 08/10/22 07:58 36.8 C 76 16 121/71 93 Room Air
--- NOTE | 2022-08-10 12:00 | Hospitalist Progress Note ---
Date of Service August 10, 2022 Assessment & Plan (1) Closed fracture of neck of left femur: Plan: S/P ORIF left hip - Dilip Baldwin MD. EBL 5cc 08/08/22 Tolerating diet and passing flatus and had a BM Pain control/antiemetics prn. Bowel regimen -- added scheduled docusate/senna. miralax available prn PT/OT consulted - and CM working on insurance approval to [facility] DVT proph: ASA 81mg BID (2) Diabetes mellitus: Plan: last a1c in system 2019 at 9.1 --> repeat 9.5 Poor control at home reporting BSGs to 200-300s, fear of lows at night and waiting for new device outpatient Had been on her own pump as BSGs 155 yesterday post-op but elevated to 300s overnight and her insulin pump dc this am/pharmacy consulted Given 8u glargine, basal/bolus initiated Most recent BSG 270 continue to monitor Appreciate glycemic management DM educator on consult (3) Hypothyroidism: Plan: Chronic Continue home dose of levothyroxine 100 mcg daily Check TSH level -- low . prior elevations in 2019 w/ myxedema. T3/T4 wnl and would rec repeating levels outpatient could consider decreasing her Synthroid and repeating TFT in 4-6 weeks, but defer to pcp in fu (4) Hypertension: Plan: Chronic and stable BP stable 121/71 Kidney function stable post op and resumed Lisinopril yesterday (5) HLD (hyperlipidemia): Plan: Chronic and stable Continue statin therapy with simvastatin 20 mg daily Plan continued inpatient stay ANA LAURA working on insurance approval for [employer] and [facility] Admission and Anticipated Discharge Date Admission Date: August 07, 2022 Subjective Patient was seen and examined at bedside this morning. She states she is feeling well. She denies any pain, numbness. CM is working on getting insurance approval for [employer] and [facility] falls through. Review of Systems Review of Systems: Constitutional-no fever or chills ENT-no blurred vision, no double vision, no epistaxis, no sore throat Respiratory- no shortness of breath noted with exertion. No wheezing Cardiac-no palpitations, no chest pain, no syncope GI-no nausea, vomiting, diarrhea, melena, hematochezia -no urinary retention, no urinary incontinence, Musculoskeletal-left hip pain Skin- no pruritus Neuro-no isolated weakness, Physical Exam Constitutional: WD/WN, vitals as above Neck: trachea midline, no thyromegaly Respiratory: normal respiratory effort, lungs clear to auscultation Cardiovascular: RRR, no murmur, no edema Extremities: normal capillary refill; no calf tenderness and no edema Gastrointestinal (Abdomen): normal bowel sounds, soft, nontender, no hepatosplenomegaly Skin: no rashes, warm and dry (Surgical dressing in place - clean and dry) Psychiatric: A+Ox3, euthymic affect Results & Data Results & Data Vital Signs (Past 12 Hours) Vital Signs Temp Pulse Resp BP Pulse Ox O2 Del Method 08/10/22 07:58 36.8 C 76 16 121/71 93 Room Air Laboratory Results Abnormal lab results 08/09/22 08/09/22 08/09/22 Range/Units 12:03 12:05 15:20 BUN/Creatinine Ratio (10-20) Glucose (70-99(Fasting)) mg/dl POC Glucose 300 H 283 H 291 H (70-99) mg/dl 08/09/22 08/09/22 08/09/22 Range/Units 15:23 16:49 20:16 BUN/Creatinine Ratio (10-20) Glucose (70-99(Fasting)) mg/dl POC Glucose 297 H 247 H 263 H (70-99) mg/dl 08/10/22 08/10/22 08/10/22 Range/Units 01:48 07:47 08:05 BUN/Creatinine Ratio 23.4 H (10-20) Glucose 270 H (70-99(Fasting)) mg/dl POC Glucose 152 H 302 H* (70-99) mg/dl 08/10/22 Range/Units 08:09 BUN/Creatinine Ratio (10-20) Glucose (70-99(Fasting)) mg/dl POC Glucose 272 H (70-99) mg/dl PG Care Time/CCT Total # of Minutes Spent Total Time Spent with Patient: Total time spent is greater than 50% in coordination of care (as documented) at patient's floor/unit and/or counseling patient: Coding Level of Care Code 55048 SUB INP/OBS CARE 04/15MIN Diagnoses Closed fracture of neck of left femur S72.002A Encounter type: initial encounter Diabetes mellitus E11.9 Diabetes mellitus type: type 1 Hypothyroidism E03.9 Hypertension I10 HLD (hyperlipidemia) E78.5 (1) Closed fracture of neck of left femur Encounter type: initial encounter Qualified Code(s): S72.002A - Fracture of unspecified part of neck of left femur, initial encounter for closed fracture (2) Diabetes mellitus Diabetes mellitus type: type 1
--- NOTE | 2022-08-10 14:12 | Pharmacy Report ---
Pharmacy Glycemic Short Note 2 - Date of Service August 10, 2022 - Glycemic Short BSG Results (Last 24 hours): 08/09/22 08/09/22 08/09/22 15:20 15:23 16:49 Glucose POC Glucose 291 H 297 H 247 H 08/09/22 08/10/22 08/10/22 20:16 01:48 07:47 Glucose 270 H POC Glucose 263 H 152 H 08/10/22 08/10/22 08/10/22 08:05 08:09 11:51 Glucose POC Glucose 302 H* 272 H 301 H* 08/10/22 11:53 Glucose POC Glucose 331 H* OUTPATIENT ANTIDIABETIC REGIMEN: * Novolog insulin pump * [id number]: 0.175 units/hr * [id number]: 0.525 units/hr * [id number]: 0.675 units/hr * [id number]: 0.5 units/hr * [id number]: 0.6 units/hr * [id number]: 0.150 units/hr * Total basal: 11.25 units/day * Carb ratio: 1 unit per 23-25 gm CHO * Correction factor: 110 mg/dL/unit (goal range 90-110) * Total bolus: ~7-8 units/day * HbA1c: 9.5% (08/09/22) ASSESSMENT: 08/10 * Despite receiving significantly more SQ insulin than patient generally uses with her insulin pump, BSGs remain elevated. * Have been cautiously increasing Lantus/Novolog in an attempt to avoid causing hypoglycemia in insulin-sensitive patient. * Based on A1c, patient's average BSGs are somewhere in the 200s. Would prefer tighter glycemic control to facilitate wound/infection healing. * Lantus increased this morning. Novolog parameters have been tightened. * Will continue to follow and adjust regimen as indicated. 08/09 * Ms Young is a 52yo diabetic F who manages her DM with an insulin pump as an outpt. Pt is unsure of her exact pump settings, but in past admission, pt used very low doses of insulin. * Pt has been hyperglycemic, so pump was discontinued today and pt was transitioned to SQ basal/bolus insulin. * Due to pt's insulin sensitivity, SQ insulin initiated conservatively. Will titrate as needed. * Of note, patient seems to have received more insulin at lunchtime today than was indicated. Will ask that nursing monitor patient for s/s of hypoglycemia for the next several hours. PLAN FOR INPATIENT GLYCEMIC CONTROL: * Hold insulin pump (has been disconnected by patient) * Basal insulin * Lantus 12 units SQ this morning * Lantus 0-5 units SQ this evening, based on BSG * Bolus insulin * NovoLog per scale ACHS or Q6hrs while NPO * Goal Range: Low 120 mg/dL - High 150 mg/dL * Correction Factor: 35 mg/dL/unit * Nutritional / Prandial insulin per carb ratio of 1 unit per 12 grams CHO consumed
[2022-08-10] MEDS: LORATADINE 10 MG TAB PO SCH (21:21)
[2022-08-10] MEDS: SIMVASTATIN 20 MG TAB PO SCH (21:21)
[2022-08-10] MEDS: LEVOTHYROXINE SODIUM 100 MCG TABLET PO SCH (21:22)
[2022-08-10] MEDS: lisinopril 5 MG TAB PO SCH (21:22)
[2022-08-11] MEDS: oxyCODONE HCL IR 5 MG TAB (IMMEDIATE RELEASE) PO PRN ×2 (00:31→23:09)
[2022-08-11] MEDS: ACETAMINOPHEN 500 MG TAB PO SCH ×3 (05:09→21:28)
[2022-08-11 06:34] LABS: Hematocrit (blood only) 29.6 % (37.0-47.0); Hemoglobin 10.3 g/dl (12.0-16.0); Mean Corpuscular Hemoglobin 31.9 pg (25.0-34.0); Mean Corpuscular Hgb Conc 34.8 g/dL (32.0-36.0); Mean Corpuscular Volume 91.6 fL (80.0-100.0); Mean Platelet Volume 9.6 fL (9.4-12.4); Platelet Count 338 K/uL (130-400); RDW Coefficient of Variation 12.5 % (11.5-14.5); RDW Standard Deviation 41.6 fL (36.4-46.3); Red Blood Count 3.23 M/uL (4.20-5.40); White Blood Count 7.36 K/ul (4.8-10.8)
[2022-08-11] MEDS: ASPIRIN 81 MG ECTAB PO SCH (08:28)
[2022-08-11] MEDS: DOCUSATE SODIUM/SENNA 50/8.6MG TAB PO SCH (08:28)
[2022-08-11] MEDS: INSULIN ASPART PER UNIT CHARGE SC SCH ×4 (08:35→21:26)
[2022-08-11] MEDS: LANTUS PER UNIT CHARGE SC SCH ×2 (08:36→08:42)
--- NOTE | 2022-08-11 09:08 | Orthopedic Progress Note ---
Date of Service August 11, 2022 Assessment & Plan (1) S/P ORIF (open reduction internal fixation) fracture: Plan: PT/OT Weightbearing as tolerated with walker assistance Keep dressing in place as long as it is not saturated Continue with pain medication per the hospitalist service. Anticipate discharge to her senior living or rehab due to the 20 steps she has to enter her apartment. Continue DVT prophylaxis using aspirin 81 mg daily and her compression stock ings. Follow up in he office in 10-14 days from surgery. With questions contact her clinic at [phone] Admission and Anticipated Discharge Date Admission Date: August 07, 2022 Subjective This 52-year-old female seen this morning postoperative day 3 after having percutaneous pinning for a left hip fracture. Patient states she is doing very well. She states that her pain is well controlled with the p.o. pain medication. She states she has been able to get up and ambulate using her walker around the room and with physical therapy. She states that she is planning on doing some rehab for the first few weeks postoperatively. Currently she denies chest pain, shortness of breath, fever, chills, sweats or numbness or tingling in the left lower extremity. Review of Systems Review of Systems: All systems reviewed & are unremarkable except as noted in Subjective Physical Exam Physical Exam: Left hip: Dressing is clean dry and intact and left in place. Patient easily tolerates passive hip flexion to 90 degrees and external rotation. She does experience a twinge of pain at the incision site with passive internal rotation. She is able to perform active straight leg raise test. She is able to actively dorsi plantarflex foot without issue. Quad strength is 3+ out of 5. Patient is neurovascular intact in the left lower extremity. Results & Data Vital Signs (Past 12 Hours) Vital Signs Temp Pulse Resp BP Pulse Ox O2 Del Method 08/11/22 07:18 36.9 C 67 16 109/69 94 Room Air 08/10/22 22:00 Room Air 08/10/22 21:18 36.9 C 73 16 125/78 95 Room Air Diagnostic Findings Laboratory Results WBC 7.36 K/ul (4.8-10.8) 08/11/22 06:06 RBC 3.23 M/uL (4.20-5.40) L 08/11/22 06:06 Hgb 10.3 g/dl (12.0-16.0) L 08/11/22 06:06 Hct 29.6 % (37.0-47.0) L 08/11/22 06:06 MCV 91.6 fL (80.0-100.0) 08/11/22 06:06 MCH 31.9 pg (25.0-34.0) 08/11/22 06:06 MCHC 34.8 g/dL (32.0-36.0) 08/11/22 06:06 RDW Std Deviation 41.6 fL (36.4-46.3) 08/11/22 06:06 RDW Coeff of Dilshad 12.5 % (11.5-14.5) 08/11/22 06:06 Plt Count 338 K/uL (130-400) 08/11/22 06:06 MPV 9.6 fL (9.4-12.4) 08/11/22 06:06 Immature Gran % (Auto) 0.2 % 08/07/22 21:38 Neut % (Auto) 69.4 % 08/07/22 21:38 Lymph % (Auto) 19.9 % 08/07/22 21:38 Duchesne % (Auto) 6.7 % 08/07/22 21:38 Eos % (Auto) 3.4 % 08/07/22 21:38 Baso % (Auto) 0.4 % 08/07/22 21:38 Neut # (Auto) 8.70 K/uL (1.40-6.50) H 08/07/22 21:38 Lymph # (Auto) 2.49 K/uL (1.2-3.4) 08/07/22 21:38 Duchesne # (Auto) 0.84 K/uL (0.11-0.59) H 08/07/22 21:38 Eos # (Auto) 0.42 K/uL (0-0.50) 08/07/22 21:38 Baso # (Auto) 0.05 K/uL (0-0.2) 08/07/22 21:38 Immature Gran # (Auto) 0.02 K/uL (0.01-0.20) 08/07/22 21:38 PT 10.2 Seconds (9.0-12.0) 08/07/22 21:38 INR 0.9 (0.9-1.1) 08/07/22 21:38 APTT 24.6 Seconds (21.0-31.0) 08/07/22 21:38 PTT Ratio 0.9 08/07/22 21:38 Sodium 136 mmol/L (136-145) 08/10/22 07:47 Potassium 4.4 mmol/L (3.5-5.1) 08/10/22 07:47 Chloride 103 mmol/L (98-107) 08/10/22 07:47 Carbon Dioxide 28 mmol/L (21-32) 08/10/22 07:47 Anion Gap 5 (3-11) 08/10/22 07:47 BUN 18 mg/dl (6-23) 08/10/22 07:47 Creatinine 0.77 mg/dl (0.6-1.2) 08/10/22 07:47 Est Cr Clr Drug Dosing 75.2 ml/min 08/10/22 07:47 Est GFR ( Amer) 102.9 ml/min 08/10/22 07:47 Est GFR (Non-Af Amer) 88.8 ml/min 08/10/22 07:47 BUN/Creatinine Ratio 23.4 (10-20) H 08/10/22 07:47 Glucose 270 mg/dl (70-99(Fasting)) H 08/10/22 07:47 POC Glucose 272 mg/dl (70-99) H 08/11/22 08:18 Estimat Average Glucose 226 mg/dl 08/09/22 09:45 Hemoglobin A1c 9.5 % (4.5-5.6) H 08/09/22 09:45 Calcium 9.6 mg/dl (8.6-10.3) 08/10/22 07:47 Magnesium 1.7 mg/dl (1.7-2.4) 08/10/22 07:47 Total Bilirubin 0.3 mg/dl (0.2-1.0) 08/07/22 21:38 AST 19 U/L (13-39) 08/07/22 21:38 ALT 21 U/L (7-52) 08/07/22 21:38 Alkaline Phosphatase 110 U/L (34-104) H 08/07/22 21:38 Total Protein 6.0 gm/dl (6.0-8.3) 08/07/22 21:38 Albumin 3.5 gm/dl (3.4-5.0) 08/07/22 21:38 Globulin 2.5 gm/dl (2.5-4.0) 08/07/22 21:38 Albumin/Globulin Ratio 1.4 (0.9-2) 08/07/22 21:38 25-OH Vitamin D Total 41.0 ng/ml (30-100) 08/09/22 09:45 TSH 0.229 uIu/ml (0.300-4.500) L 08/08/22 07:10 Free T4 1.37 ng/dl (0.61-1.60) 08/08/22 07:10 Free T3 3.17 pg/ml (2.3-4.2) 08/08/22 07:10 SARS-CoV-2, RNA, NAAT NEGATIVE (NEGATIVE) 08/07/22 21:40 Impressions Hip/Pelvis X-Ray 08/07/22 19:37 XR hip LT 2V w pelvis CLINICAL HISTORY: s/p fall. Left hip pain. COMPARISON STUDY: None. FINDINGS: There is impacted left femoral neck fracture. No dislocation. The visualized pelvic bones are intact. Soft tissues are unremarkable. IMPRESSION: Impacted left femoral neck fracture. ACT 112: Negative or not required by law. Electronically signed by: Sanjiv Solano M.D. 08/08/2022 7:45 AM Chest X-Ray 08/07/22 21:00 XR chest 1V portable HISTORY: Pre-op COMPARISON: Chest 11/23/2018. FINDINGS: The lungs are clear. Cardiac silhouette is normal in size. No pleural effusions. No pneumothorax. IMPRESSION: No acute process. ACT 112: Negative or not required by law. Electronically signed by: Sanjiv Solano M.D. 08/08/2022 7:56 AM Hip X-Ray 08/08/22 07:30 FL hip LT 2-3V CLINICAL HISTORY: LEFT HIP CANNULATED SCREWS COMPARISON STUDY: None. FLUOROSCOPY TIME: 1 minute and 35 seconds FLUOROSCOPY IMAGES: 2 Ka,r: 17.1 mGy FINDINGS: Status post internal fixation of the left femoral neck fracture with 3 cannulated screws. The hardware appears intact. Alignment appears near-anatomic. IMPRESSION: Fluoroscopic assistance as above. ACT 112: Negative or not required by law. Electronically signed by: Sanjiv Solano M.D. 08/08/2022 2:32 PM
--- NOTE | 2022-08-11 12:54 | Pharmacy Report ---
Pharmacy Glycemic Short Note 2 - Date of Service August 11, 2022 - Glycemic Short BSG Results (Last 24 hours): 08/10/22 08/10/22 08/11/22 17:02 21:09 08:18 POC Glucose 127 H 175 H 272 H 08/11/22 08/11/22 12:15 12:16 POC Glucose 334 H* 324 H* OUTPATIENT ANTIDIABETIC REGIMEN: * Novolog insulin pump * 6077-8360: 0.175 units/hr * 5039-5332: 0.525 units/hr * 8118-9646: 0.675 units/hr * 2391-5301: 0.5 units/hr * 2150-2087: 0.6 units/hr * 7824-1141: 0.150 units/hr * Total basal: 11.25 units/day * Carb ratio: 1 unit per 23-25 gm CHO * Correction factor: 110 mg/dL/unit (goal range 90-110) * Total bolus: ~7-8 units/day * HbA1c: 9.5% (08/09/22) ASSESSMENT: 08/11 * Patient received total of 35 units of insulin yesterday, of which 12 units were basal insulin * Fasting BSG elevated - will increase basal insulin by 15-20% this AM * Continue same CF/CR for now. Could consider tighter CR with breakfast as lunch BSG tends to be elevated each day 08/10 * Despite receiving significantly more SQ insulin than patient generally uses with her insulin pump, BSGs remain elevated. * Have been cautiously increasing Lantus/Novolog in an attempt to avoid causing hypoglycemia in insulin-sensitive patient. * Based on A1c, patient's average BSGs are somewhere in the 200s. Would prefer tighter glycemic control to facilitate wound/infection healing. * Lantus increased this morning. Novolog parameters have been tightened. * Will continue to follow and adjust regimen as indicated. 08/09 * Ms Young is a 52yo diabetic F who manages her DM with an insulin pump as an outpt. Pt is unsure of her exact pump settings, but in past admission, pt used very low doses of insulin. * Pt has been hyperglycemic, so pump was discontinued today and pt was transitioned to SQ basal/bolus insulin. * Due to pt's insulin sensitivity, SQ insulin initiated conservatively. Will titrate as needed. * Of note, patient seems to have received more insulin at lunchtime today than was indicated. Will ask that nursing monitor patient for s/s of hypoglycemia for the next several hours. PLAN FOR INPATIENT GLYCEMIC CONTROL: * Hold insulin pump (has been disconnected by patient) * Basal insulin * Lantus 14 units daily * Bolus insulin * NovoLog per scale ACHS or Q6hrs while NPO * Goal Range: Low 120 mg/dL - High 150 mg/dL * Correction Factor: 35 mg/dL/unit * Nutritional / Prandial insulin per carb ratio of 1 unit per 12 grams CHO consumed
--- NOTE | 2022-08-11 18:03 | Hospitalist Progress Note ---
Date of Service August 11, 2022 Assessment & Plan (1) Closed fracture of neck of left femur: Plan: S/P ORIF left hip - Dilip Baldwin MD. EBL 5cc 08/08/22 Tolerating diet and passing flatus and had a BM Pain control/antiemetics prn. Bowel regimen -- added scheduled docusate/senna. miralax available prn PT/OT consulted - and CM working on placement DVT proph: ASA 81mg BID (2) Diabetes mellitus: Plan: last a1c in system 2019 at 9.1 --> repeat 9.5 Poor control at home reporting BSGs to 200-300s, fear of lows at night and waiting for new device outpatient Had been on her own pump but due to high blood sugar readings, the pump was discontinued and the patient was started on long-acting and short acting insulin Diabetes education consulted The plan is to discharge the patient on long-acting and short-acting insulin to rehab Her insulin pump will need to be uptitrated by her PCP outpatient long-term (3) Hypothyroidism: Plan: Chronic Continue home dose of levothyroxine 100 mcg daily Check TSH level -- low . prior elevations in 2019 w/ myxedema. T3/T4 wnl and would rec repeating levels outpatient could consider decreasing her Synthroid and repeating TFT in 4-6 weeks, but defer to pcp in fu (4) Hypertension: Plan: Chronic and stable BP stable 121/71 Kidney function stable post op and resumed Lisinopril yesterday (5) HLD (hyperlipidemia): Plan: Chronic and stable Continue statin therapy with simvastatin 20 mg daily Plan continued inpatient stay CM working on placement Admission and Anticipated Discharge Date Admission Date: August 07, 2022 Subjective Patient feels well. Denies chest pain or shortness of breath Review of Systems Review of Systems: All systems reviewed & are unremarkable except as noted in Subjective Physical Exam Physical Exam: General: Awake, conversant Heart: S1, S2/regular rate and rhythm, no murmur rubs or gallops Lungs: Clear to auscultation bilaterally. Normal effort Abdomen: Soft/nontender/nondistended. No hepatosplenomegaly Extremities: No clubbing/cyanosis. No edema Behavior: Appropriate, cooperative Results & Data Results & Data Vital Signs (Past 12 Hours) Vital Signs Temp Pulse Resp BP Pulse Ox O2 Del Method 08/11/22 15:10 36.9 C 62 14 101/62 94 Room Air 08/11/22 07:18 36.9 C 67 16 109/69 94 Room Air Laboratory Results Abnormal lab results 08/10/22 08/11/22 08/11/22 Range/Units 21:09 06:06 08:18 RBC 3.23 L (4.20-5.40) M/uL Hgb 10.3 L (12.0-16.0) g/dl Hct 29.6 L (37.0-47.0) % POC Glucose 175 H 272 H (70-99) mg/dl 08/11/22 08/11/22 08/11/22 Range/Units 12:15 12:16 17:10 RBC (4.20-5.40) M/uL Hgb (12.0-16.0) g/dl Hct (37.0-47.0) % POC Glucose 334 H* 324 H* 181 H (70-99) mg/dl PG Care Time/CCT Total # of Minutes Spent Total Time Spent with Patient: Total time spent is greater than 50% in coordination of care (as documented) at patient's floor/unit and/or counseling patient: Coding Level of Care Code 81493 SUB INP/OBS CARE 2MIN Diagnoses Closed fracture of neck of left femur S72.002A Encounter type: initial encounter Diabetes mellitus E11.9 Diabetes mellitus type: type 1 Hypothyroidism E03.9 Hypertension I10 HLD (hyperlipidemia) E78.5 (1) Closed fracture of neck of left femur Encounter type: initial encounter Qualified Code(s): S72.002A - Fracture of unspecified part of neck of left femur, initial encounter for closed fracture (2) Diabetes mellitus Diabetes mellitus type: type 1
[2022-08-11] MEDS: LEVOTHYROXINE SODIUM 100 MCG TABLET PO SCH (19:42)
[2022-08-11] MEDS: SIMVASTATIN 20 MG TAB PO SCH (19:43)
[2022-08-11] MEDS: LORATADINE 10 MG TAB PO SCH (19:43)
[2022-08-11] MEDS: lisinopril 5 MG TAB PO SCH (19:44)
[2022-08-12] MEDS: ACETAMINOPHEN 500 MG TAB PO SCH ×2 (05:29→13:33)
[2022-08-12] MEDS: ASPIRIN 81 MG ECTAB PO SCH (08:27)
[2022-08-12] MEDS: DOCUSATE SODIUM/SENNA 50/8.6MG TAB PO SCH (08:28)
[2022-08-12] MEDS: LANTUS PER UNIT CHARGE SC SCH (08:35)
[2022-08-12] MEDS: INSULIN ASPART PER UNIT CHARGE SC SCH ×2 (08:35→12:43)
--- NOTE | 2022-08-12 10:57 | Orthopedic Progress Note ---
Date of Service August 12, 2022 Assessment & Plan (1) S/P ORIF (open reduction internal fixation) fracture: Plan: PT/OT Weightbearing as tolerated with walker assistance Keep dressing in place as long as it is not saturated Continue with pain medication per the hospitalist service. Case management for discharge needs, patient does not want to go to rehab and is hoping for home health services Continue DVT prophylaxis using aspirin 81 mg daily and her compression stockings. Follow up in The office as scheduled She is orthopedically stable for discharge With questions contact the clinic at [phone] Admission and Anticipated Discharge Date Admission Date: August 07, 2022 Subjective Patient is up and walking upon entering the room with her walker. She reports that she is doing great. She is getting around well and she has no pain today. Denies any numbness or tingling or any calf pain. She says that she has not going to rehab and is hoping that she can get home health. Physical Exam Physical Exam: General: Pt Walking with a walker, no assistance Lower Extremity: Dressing looks great, in tact and not saturated. Pt has full ROM of ankle and all 5 digits. Pt has 5/5 strength with resisted DF/PF. SLR in tact. Calf supple and non tender. NVI with sensation to light touch distally and good distal pulses present. She is able to bend her knee to 90 and slightly flex her hip. She tolerated passive abduction and adduction to neutral. Results & Data Vital Signs (Past 12 Hours) Vital Signs Temp Pulse Resp BP Pulse Ox O2 Del Method 08/12/22 07:07 37.1 C 67 16 102/64 95 Room Air 08/12/22 00:31 Room Air
--- NOTE | 2022-08-12 13:43 | Discharge Summary ---
Date of Service August 12, 2022 Admission HPI Per Admitting Provider This is a 52-year-old female with past medical history significant of hypertension, hyperlipidemia, insulin-dependent diabetes mellitus on insulin pump, hypothyroidism on thyroid replacement who presents to the emergency department with complains of left hip pain following a mechanical fall. Patient reports that she was walking when she tried to avoid stepping on her dog and in the process lost her balance and tripped over a stool and landed on her left side of her hip. Patient subsequently developed acute pain over the left hip area and was unable to ambulate without pain. Patient had moderate to severe hip pain and was evaluated in the ED with a x-ray of the left hip that confirmed left hip fracture involving the femoral neck. Based on preliminary report it appears that the fracture was not displaced. ED had contacted orthopedic on-call and based on confirmation of the ED patient is scheduled for surgical intervention in the OR in a.m. Patient denies any chest pain or shortness of breath Admission Exam Per Admitting Provider Head and ENT no thyroid enlargement trachea midline Cardiovascular S1-S2 are normal no S3 Lungs bilateral air entry fair no wheezing Abdomen soft nondistended positive bowel sounds no rebound tenderness Extremity shows trace edema, pain over left hip area secondary to fall Neurologically no focal deficits Skin shows no rash no cyanosis Principal Diagnosis Hip fracture status post open reduction internal fixation Discharge Exam General: Awake, conversant Heart: S1, S2/regular rate and rhythm, no murmur rubs or gallops Lungs: Clear to auscultation bilaterally. Normal effort Abdomen: Soft/nontender/nondistended. No hepatosplenomegaly Extremities: No clubbing/cyanosis. No edema Behavior: Appropriate, cooperative Discharge Data Allergies Allergy/AdvReac Type Severity Reaction Status Date / Time No Known Allergies Allergy Verified 08/07/22 21:24 Consultations 08/07/22 21:22 ED Decision to Admit Stat 08/11/22 18:10 Consult Orthopedic Surgery Routine Procedures Performed Operation Date: 08/08/22 07:30 Actual Procedures p Open Reduction and Internal Fixation Left Hip Fracture with Cannulated Screw(Left) - Dilip Baldwin MD Ordered Studies 08/08/22 07:30 FL hip LT 2-3V Routine Diabetes Follow up Diabetes Follow-up Needed for HgbA1c >9% Hospital Course (1) Closed fracture of neck of left femur: S/P ORIF left hip - Dilip Baldwin MD. EBL 5cc 08/08/22 Tolerating diet and passing flatus and had a BM Pain control/antiemetics prn. Bowel regimen -- added scheduled docusate/senna. miralax available prn (2) Diabetes mellitus: last a1c in system 2019 at 9.1 --> repeat 9.5 Poor control at home reporting BSGs to 200-300s, fear of lows at night and waiting for new device outpatient Had been on her own pump but due to high blood sugar readings, the pump was discontinued and the patient was started on long-acting and short acting insulin Diabetes education consulted Her insulin pump will need to be uptitrated by her PCP outpatient long-term (3) Hypothyroidism: Chronic Continue home dose of levothyroxine 100 mcg daily Check TSH level -- low . prior elevations in 2019 w/ myxedema. T3/T4 wnl and would rec repeating levels outpatient could consider decreasing her Synthroid and repeating TFT in 4-6 weeks, but defer to pcp in fu (4) Hypertension: Chronic and stable BP stable Kidney function stable post op and resumed Lisinopril yesterday (5) HLD (hyperlipidemia): Chronic and stable Continue statin therapy with simvastatin 20 mg daily Plan Discharge to home with home health services Total Time Total Time Spent Total Time Spent (In Minutes): 35 Discharge Plan Discharge Items Patient Disposition: Home - Self-Care Reason For Visit: HIP FRACTURE Discharge Diagnosis: Hip fracture post repair Activity: As commented below Activity Comment: Per PT/OT recommendations Lifting: Wait until after follow-up appointment Bathing: Keep incision dry Exercise/Sports: Wait until after follow-up appointment Driving/Machine Use: No driving until cleared by Dr. Baldwin Weightbearing: Full weightbearing Non-emergency contact: Primary Care Provider Call non-emergency contact if: you have any medication questions, your symptoms worsen, your temperature is above 101, your wound has increased redness, your wound has increased drainage and your wound pain has increased Follow-up/Referrals: Colin Arita [Primary Care Provider] - Chris Colin PA-C [Physician Organ Recovery Coordinator] - 08/25/22 2:45 pm Diet: Heart Healthy Addtl Attending Provider Instructions: Advised to follow-up with PCP in 1 week Advised to note that you need better control of your diabetes which will be pursued by your PCP Addtl [employer] Practitioner Provider Instructions: Orthopedic Discharge Instructions: WBAT with walker to assist in ambulation Aspirin 81mg daily with compression stockings Take Tylenol 650mg every 6 hours as needed for mild discomfort. Add the Oxycodone as needed for more severe pain PT/OT -do your exercises daily Follow up as scheduled with [facility] for your 2 week post op appointment Pending Studies at Discharge: No Stand-Alone Forms: My [facility], Pain - Opioid Pain Management, Smoking Cessation Medications and DC Order Prescriptions: New oxycodone 5 mg capsule 5 mg PO Q12H Qty: 10 0RF Continued simvastatin 20 mg tablet 20 mg PO QPM lisinopril 5 mg tablet 5 mg PO QPM albuterol sulfate [Ventolin HFA] 90 mcg/actuation HFA aerosol inhaler 2 puff inhalation Q6H PRN (Reason: Shortness Of Breath Or Wheezing) loratadine 10 mg tablet 10 mg PO QPM levothyroxine 100 mcg tablet 100 mcg PO [id number] Rx Instructions: TAKES QPM. PER EXT MED HX. TAKES MONDAYS THROUGH SATURDAYS. SKIPS SUNDAYS. insulin aspart U-100 100 unit/mL solution 0 unit continuous subcutaneous infusion CONTINOUS MDD 100 UNITS/24 HOURS Discharge Orders: Discharge Order (Routine); Ordered 08/12/22 Ordered By: Abdulaziz Reyez/Other Patient Handouts: DVT Post Op Prevention Admission Data Admit Date/Time: 08/07/22 23:59 Attending Provider: Abdulaziz Grossman Admit Provider: Dilip Guadarrama Primary Care Provider: Colin Arita Other Providers: Chase Messer ; Laura Queen ; [facility] ; [facility] ; Dilip Baldwin Other Interventions: Discharge Summary Assessment (RN) Last Done: 08/12/22 14:22 Coding Level of Care Code 78735 INP/OBS DISCH >30 MIN Diagnoses Closed fracture of neck of left femur S72.002A Encounter type: initial encounter Diabetes mellitus E11.9 Diabetes mellitus type: type 1 Hypothyroidism E03.9 Hypertension I10 HLD (hyperlipidemia) E78.5
== END 2022-08-12 16:59 | disposition home health service (06) | DRG 482 ==
LOC: ED 19:09 → 3E 23:59 → SUATTDRO 23:59 → 3E 08-08 01:25
DX: E03.9 Hypothyroidism, unspecified; Z79.4 Long term (current) use of insulin; E10.9 Type 1 diabetes mellitus without complications; W01.0XXA Fall on same level from slipping, tripping and stumbling without subsequent striking against object, initial encounter; Z79.890 Hormone replacement therapy; F17.210 Nicotine dependence, cigarettes, uncomplicated; Z96.41 Presence of insulin pump (external) (internal); S72.002A Fracture of unspecified part of neck of left femur, initial encounter for closed fracture; E78.5 Hyperlipidemia, unspecified; I10 Essential (primary) hypertension; Z20.822 Contact with and (suspected) exposure to COVID-19; Z79.899 Other long term (current) drug therapy